=== PATIENT | female | born 1965 | race Caucasian/White ===

== ENCOUNTER 2017-04-02 17:29 | Inpatient (IN) ==
--- NOTE | 2017-04-02 17:38 | Emergency Department Note ---
Disposition Clinical Impression: Acute appendicitis Qualifiers: Acute appendicitis type: unspecified acute appendicitis type Qualified Code(s) : K35.80 - Unspecified acute appendicitis Disposition: Admitted As Inpatient Condition: Good Forms: Work/School Release, ED Satisfaction Letter Time of Disposition: 17:44 Abdominal Pain HPI - General Chief Complaint: ED Abdominal Pain Stated Complaint: + Appy Time Seen by Provider: 04/02/17 17:32 Source: patient, EMS Mode of arrival: EMS Limitations: no limitations Nursing Notes Reviewed: Yes Vital Signs Reviewed: Yes - History of Present Illness HPI Narrative: 51-year-old who comes in complaining of abdominal pain that she's had for 2 weeks intermittently and worse over the last 2 days localized to the right lower quadrant she was seen at the [facility] white count was normal at 9.8 hemoglobin was 15. 1 hematocrit was 46.8 with surgery 336,000 also some was negative CT of the abdomen was obtained that shows a dilated blind-ending tubular structure in the right lower quadrant with surrounding inflammatory changes which is consistent with acute appendicitis. Pt Subjective Complaint: abdominal pain Onset (ago): week(s) Consistency: intermittent Location: RLQ Pain Severity: moderate Quality: aching Radiation: none Migration to: no migration Improves with: nothing Worsens with: nothing Associated symptoms: Reports: nausea - Related Data Allergies Allergy/AdvReac Type Severity Reaction Status Date / Time No Known Allergies Allergy Verified 04/02/17 17:37 Constitutional: Denies: fever, chills, weakness, weight change Eyes: Denies: eye pain, eye discharge, vision change ENT ED: Denies: ear pain, throat pain, dental pain, hearing loss, epistaxis, congestion, dysphagia Cardiovascular: Denies: chest pain, palpitations, dyspnea on exertion, edema, syncope Respiratory: Denies: cough, dyspnea, wheezes, hemoptysis, stridor Gastrointestinal: Reports: abdominal pain, nausea. Denies: vomiting, diarrhea, constipation, hematemesis, melena, hematochezia Genitourinary: Denies: dysuria, frequency, hematuria, discharge Musculoskeletal: Denies: back pain, neck pain, arthralgia, myalgia Integumentary: Denies: rash, abrasion, lesions Neurological: Denies: headache, weakness, numbness, paresthesias, confusion, abnormal gait, vertigo Psychiatric: Denies: anxiety, depression, suicidal thoughts, homicidal thoughts , auditory hallucinations, visual hallucinations Endocrine: Denies: fatigue Hematological/Lymphatic: Denies: easy bleeding, easy bruising Allergic/Immunologic: Denies: facial swelling, urticaria Physical Exam - General Limitations: no limitations - Head Head exam: atraumatic, normocephalic, normal inspection - Eye Eye exam: Present: normal appearance, PERRL, EOMI - ENT ENT exam: normal exam, normal oropharynx, mucous membranes moist - Neck Neck exam: Present: normal inspection, full ROM, trachea midline - Chest Chest inspection: Present: normal inspection, symmetric chest wall rise - Respiratory Respiratory exam: Present: normal lung sounds bilaterally - Cardiovascular Cardiovascular exam: Present: regular rate, normal rhythm, normal heart sounds - Abdominal Exam Abdominal exam: Present: soft, tenderness, guarding. Absent: distention, rebound, rigidity Abdominal tenderness: Present: RLQ - Extremities Exam Extremities exam: Present: normal inspection, full ROM. Absent: tenderness, pedal edema - Expanded Lower Extremity Exam Neurovascular/Tendon exam: Absent: motor deficit, sensory deficit, tendon deficit Gait: not tested/not observed - Back Exam Back exam: Present: normal inspection, full ROM. Absent: tenderness - Neurological Exam Neurological exam: Present: alert, oriented X3 - Psychiatric Psychiatric exam: Present: normal affect, normal mood - Skin Skin exam: Present: warm, dry, intact, normal color Course - Reevaluation(s) Reevaluation #1: 51-year-old with abdominal pain right lower quadrant. Patient was evaluated at the [facility] white count was normal urine was negative CT scan consistent with acute appendicitis surgery will evaluate the patient. Time: 17:42 - Consultations Consultation #1: Discussed with , who will see the patient. Time: 17:42
[2017-04-02] MEDS ORDERED: Piperacillin/Tazobactam 3.375 GM in D5% in Water (Mini-Bag+) 100 ML IVPB ONE (17:43)
[2017-04-02] MEDS ORDERED: *HR* HYDROmorphone (PF) 1 MG/ML SYRINGE IVP ONE (18:00)
[2017-04-02] MEDS ORDERED: Ondansetron 4 MG/2 ML VIAL IVP ONE ×2 (18:00→19:29)
[2017-04-02 18:42] LABS: INR 1.1
[2017-04-02 18:44] LABS: Activated Partial Thrombo Time 30.3 Seconds (26.0-36.0)
[2017-04-02 18:50] LABS: BUN/Creatinine Ratio 9 (6-26); Blood Urea Nitrogen 6 mg/dL (7-20); Calcium 9.1 mg/dL (8.6-10.8); Carbon Dioxide 22 mEq/L (19-29); Chloride 107 mEq/L (98-109); Glucose 96 mg/dL (70-99); Osmolality,Calculated 287 (280-300); Sodium 140 mEq/L (136-145); eGFR For African Americans > 60 (> 60); eGFR For Non-African Americans > 60 (> 60)
[2017-04-02] MEDS ORDERED: *HR* FentaNYL (PF) 100 MCG/2 ML VIAL ONE (19:05)
[2017-04-02] MEDS ORDERED: *HR* Midazolam HCl 2 MG/2 ML VIAL ONE (19:06)
[2017-04-02] MEDS ORDERED: *HR* Propofol 200 MG/20 ML VIAL IVP ONE ×2 (19:06→20:34)
--- NOTE | 2017-04-02 19:07 | General Surg History&Physical ---
Date of Encounter: 04/02/17 Time of Encounter: 19:05 Assessment and Plan (1) Acute appendicitis Current Visit: Yes Status: Acute The assessment and plan as outlined above was discussed with the patient and/or family members who expressed understanding and agreement. All questions were answered. ct report and exam reviewed with patient and her family. Patient with acute appendicitis. nanosyn in ED wbc 9.8 inr 1.1 no tested needed d/t partial hysterectomy will plan laparoscopic appendectomy possible open, risks and benefits discussed with patient and she wishes to proceed Qualifiers: Acute appendicitis type: with localized peritonitis Qualified Code(s): K35.3 - Acute appendicitis with localized peritonitis (2) Tobacco abuse Current Visit: Yes Status: Acute The assessment and plan as outlined above was discussed with the patient and/or family members who expressed understanding and agreement. All questions were answered. aerosol before surgery IS, aggressive pulmonary toilet History of Present Illness Chief complaint: abdominal pain HPI: Ms. Kay is a 51 year old female with two weeks of intermittent right sided abdominal pain which she describes as initially a dull pain. Last two days her pain is right sided and sharp without radiation. She denies nausea or emesis. She has no diarrhea or dysuria. She has no fevers, chills or night sweats that are new. She is up visiting her mother from [facility]. Past Med Surg Social Fam HX - Past Medical History Source: patient Medical history: no medical history, other (obesity) Psychiatric history: no psych history - Past Surgical History Surgical History: other (partial hysterectomy, tubal ligation) - Social History Smoking Status: Current every day smoker Smokeless Tobacco Status: No Alcohol use: occasionally Drug use: none Current living situation: Home - Independent - Family History Grandmother History Unknown: Yes Medications and Allergies No Known Home Drugs 04/02/17 [History] Allergies No Known Allergies Allergy (Verified 04/02/17 17:37) Review of Systems All systems PM: reviewed and no additional remarkable complaints except as stated All systems PM: A 10-system review of systems was performed and is negative for pertinent findings except as documented above in the HPI. General Surgery Exam Initial Vital Signs Temp Pulse Resp BP Pulse Ox 98.4 F 80 18 137/78 96 04/02/17 17:30 04/02/17 17:30 04/02/17 17:30 04/02/17 17:30 04/02/17 17:30 - General physical appearance well developed, well nourished, no distress, obese - Eyes PERRL, normal ocular movement - ENT normal mucosa, atraumatic, normocephalic - Neck trachea midline - Respiratory normal expansion, clear to auscultation - Cardiovascular Cardiovascular exam: Present: RRR, no murmurs/rubs/gallops - Abdomen Abdomen general surgery: Present: bowel sounds present, soft, tender (right abdominal/flank pain). Absent: distended, guarding, rebound, rigid - Integumentary Integumentary general surgery: Present: warm and dry, no abnormal pigmentation. Absent: diaphoresis - Neurologic Present: CN 2-12 grossly intact - Musculoskeletal Present: normal gait, normal posture - Psychiatric Psychiatric general surgery: Present: A&Ox3, speech is normal Results - Labs 04/02/17 18:05 Abnormal lab results BUN 6 mg/dL (7-20) L 04/02/17 18:05 All other labs normal. - Imaging CT scan - abdomen: report reviewed CT scan - pelvis: report reviewed
[2017-04-02] MEDS ORDERED: *HR* Succinylcholine 200 MG/10 ML VIAL IVP ONE (19:09)
[2017-04-02] MEDS ORDERED: *HR* Rocuronium Bromide 50 MG/5 ML VIAL ONE (19:09)
[2017-04-02] MEDS ORDERED: Dexamethasone 4 MG/ML VIAL ONE (19:09)
[2017-04-02] MEDS ORDERED: Lidocaine -MPF 2% 2 ML VIAL ONE (19:09)
[2017-04-02] MEDS ORDERED: Ondansetron 4 MG/2 ML VIAL ONE (19:09)
[2017-04-02] MEDS ORDERED: Albuterol 2.5 MG/3 ML NEBULIZER IH ONE (19:16)
--- NOTE | 2017-04-02 19:19 | Anesthesia Evaluation PreOp ---
Date of Encounter: 04/02/17 Time of Encounter: 19:19 - Past History Planned Operation: Lap. Appy Cardiac History: Denies any Significant Hx Pulmonary History: Smoker SALES LEDGER ADMINISTRATOR History: Denies Any Significant HX Other Medical History: Denies Any Significant HX Anesthesia History: Past Anesthesia (AMAURY, tubal) : No (AMAURY) Alcohol Use: occasionally Drug use: none Medications and Allergies No Known Home Drugs 04/02/17 [History] Allergies No Known Allergies Allergy (Verified 04/02/17 17:37) - Meds/Allergy Pre-op Review Medications Reviewed: Yes Allergies Reviewed: Yes Beta Blockers on Current Med List: No Anesthesia Results - Labs 04/02/17 18:05 Hg.- 15.1 Anesthesia Exam O2 Sat Height 1.68 m Weight 99.79 kg O2 Sat by Pulse Oximetry 95 O2 Sat by Pulse Oximetry 96 Vital Signs Temp Pulse Resp BP Pulse Ox 98.4 F 80 18 137/78 96 04/02/17 17:30 04/02/17 17:30 04/02/17 17:30 04/02/17 17:30 04/02/17 17:30 Vital Signs/O2 Sat, Most Current Temp Pulse Resp BP Pulse Ox 98.4 F 72 18 134/87 95 04/02/17 17:30 04/02/17 18:35 04/02/17 18:35 04/02/17 18:35 04/02/17 18:35 Height: 5'6'' Weight: 220# NPO (# of Hours): > 8 hrs Pain Scale: 0 Pain Scale Used: Numeric (1 - 10) - HEENT Pupil (Motor): Pupils equal, EOMI Mallampati: II Teeth: Normal Oral Opening: Greater than 3 - SALES LEDGER ADMINISTRATOR LOC: Oriented SALES LEDGER ADMINISTRATOR Motor: Normal RUE, Normal LUE, Normal RLE, Normal LLE, Normal Face SALES LEDGER ADMINISTRATOR Sensory: Normal: RUE, LUE, RLE, LLE, Face - Cardiac Rhythm: Regular Murmur: None JVD: No Carotid Bruit: No - Pulmonary Breath Sounds: bilateral Clear Respiratory Effort: Symmetrical Anesthesia Assess/Plan ASA Score: 2 Modified Meme Scale for Level of Consciousness: Cooperative, oriented, and tranquil Anesthetic Plan: General Autologous Blood: Yes Monitoring Plan: Standard Monitors Recovery Plan: PACU
[2017-04-02] MEDS ORDERED: Albuterol Neb 1.25 MG/3 ML VIAL IH ONE (19:22)
[2017-04-02] MEDS ORDERED: *HR* Promethazine 25 MG/ML VIAL IVP PRN ×2 (19:29→21:55)
[2017-04-02] MEDS ORDERED: *HR* HYDROmorphone (PF) 1 MG/ML SYRINGE IVP PRN (19:29)
[2017-04-02] MEDS ORDERED: *HR* Labetalol 20 MG/4 ML SYRINGE IVP PRN (19:29)
--- NOTE | 2017-04-02 20:54 | Operative Note ---
Date of procedure: 04/02/17 Pre-op diagnosis: acute appendicitis Post-op diagnosis: same Procedure: Laparoscopic appendectomy Complications: none immediate Anesthesia: GETA, local Local Anesthetics: 0.5% Sensorcaine HCL SubQ (cc) (30) Surgeon: Maria Esther Bentley Estimated blood loss (cc): 5 Specimen: appendix Condition: stable Disposition: PACU Procedure in Detail: The patient was brought into the operating suite and placed supine on the operating table. Sign-in was performed and everyone was in agreement. Anesthesia was induced and patient was endotracheally intubated by anesthesia without incident. An OG tube was placed by anesthesia. The abdomen was prepped and draped in the usual sterile fashion. A timeout was performed and again everyone was in agreement. A supraumbilical incision was made through the skin and the subcutaneous tissue with an 11 blade. Towel clamps were placed on either side of the umbilicus for retraction. S-retractors were used to dissect down to the anterior abdominal wall linea alba fascia. A Veress needle was placed into this incision and a water drop test confirmed placement and the abdomen was insufflated. We then entered the abdomen with the 5 mm 0 degree laparoscope on a 5 mm X-stephanie trocar. The area under entry was visualized and there was no bleeding and no apparent bowel injury. We placed a suprapubic 5 mm port under direct visualization after first incising the skin with an 11 blade. The laparoscope was placed through this and we exchanged the supraumbilical port for a 12 mm port under direct visualization. We then placed another 5 mm port in the left lower quadrant position under direct visualization after first incising the skin with an 11 blade. The patient was placed in slight Trendelenburg left side down position. The cecum was located as was the appendix. The appendix was grasped and retracted anteriorly and caudally with a laparoscopic [place], it was densely adherent to the right colon with inflammation. A [place] was used to dissect between the mesoappendix and the appendix at the base of the cecum. The appendix was transected at the base of the cecum with the flex ex ETS stapler utilizing a white load. The mesoappendix was transected with a laparoscopic flex-ex ETS stapler using a white load x2. The appendix was placed in a laparoscopic Endo Catch bag and removed via the supraumbilical incision site. Both staple lines were evaluated and there was no bleeding and both staple lines were intact. The area was irrigated with sterile saline which was then suctioned free from the abdomen. The insufflation was suctioned free from the abdomen and all trochars removed. We closed the abdominal wall at the supraumbilical incision site with an 0 Vicryl [id number] stitch. A 30 cc of 0.5% Marcaine was injected subcutaneously at the 3 port sites. The skin at the two 5 mm port sites was closed with 4-0 Monocryl interrupted subcuticular stitches. The skin at the supraumbilical incision site was closed with a 4-0 Monocryl running subcuticular stitch. Steri-Strips were applied to the wounds. The patient was extubated in the OR and tolerated the procedure well and was taken to PACU after all lap and instrument counts were correct at the end of the case.
--- NOTE | 2017-04-02 21:20 | Anesthesia Evaluation Post Op ---
Date of Encounter: 04/02/17 Time of Encounter: 21:19 - Vital Signs Vital Signs: Vital Signs/O2 Sat, Most Current Temp Pulse Resp BP Pulse Ox 97.8 F 85 20 140/85 96 04/02/17 20:58 04/02/17 21:18 04/02/17 21:18 04/02/17 21:18 04/02/17 21:18 - Lungs Lungs: Clear Ascult./Percussion - Airway Airway: Non-obstructed - Cardiovascular Regular Rate - Mental Status Mental Status: Alert & Oriented, Answers Appropriately - Pain Pain Scale: 0 Pain Scale used: Numeric (1 - 10) - Nausea Vomiting Nausea Vomiting: Not Present - Hydration Hydration: Tolerates oral liquids, Has not voided - Discharge PostOp Status: Transfer Patient to floor
[2017-04-02] MEDS ORDERED: Naloxone 0.4 MG/ML INJ IVP PRN (21:55)
[2017-04-02] MEDS ORDERED: Ondansetron 4 MG/2 ML VIAL IVP PRN (21:55)
[2017-04-02] MEDS ORDERED: Ipratropium/Albuterol Neb 3 ML IH PRN (21:55)
[2017-04-02] MEDS ORDERED: 0.9 % Sodium Chloride 1,000 ML IVC SCH (21:55)
[2017-04-02] MEDS ORDERED: *HR* Morphine 2 MG/ML SYRINGE IVP PRN (21:55)
[2017-04-03] MEDS: *HR* OxyCODONE/APAP 5/325 TABLET PO PRN ×3 (00:15→11:26)
[2017-04-03] MEDS ORDERED: Piperacillin/Tazobactam 3.375 GM in D5% in Water (Mini-Bag+) 100 ML IVPB SCH (02:30)
[2017-04-03 06:44] VITALS: BP 104/61
[2017-04-03 07:25] LABS: Basophils % 0.1 %; Hematocrit 42.8 % (35.3-44.9); Hemoglobin 14.4 g/dL (11.5-15.4); Immature Granulocytes % 0.4 % (0-4); Lymphocytes # 0.9 K/mcL (0.6-4.6); Lymphocytes % 9.7 %; Mean Corpuscular HGB Conc 33.6 g/dL (31.6-35.5); Mean Corpuscular Hemoglobin 28.4 pg (28.0-33.3); Mean Corpuscular Volume 84.4 fL (83.0-100.0); Mean Platelet Volume 10.3 fL (9.4-12.4); Monocytes # 0.2 K/mcL (0.0-1.3); Monocytes % 2.2 %; Platelet Count 310 K/mcL (140-400); Red Blood Count 5.07 M/mcL (3.82-4.97); Red Cell Distribution Width 13.3 % (11.5-14.5); Segmented Neutrophils % 87.6 %
[2017-04-03 07:52] LABS: BUN/Creatinine Ratio 9 (6-26); Blood Urea Nitrogen 6 mg/dL (7-20); Carbon Dioxide 21 mEq/L (19-29); Chloride 106 mEq/L (98-109); Glucose 138 mg/dL (70-99); Osmolality,Calculated 280 (280-300); Potassium 4.2 mEq/L (3.5-4.5); Sodium 135 mEq/L (136-145); eGFR For African Americans > 60 (> 60); eGFR For Non-African Americans > 60 (> 60)
--- NOTE | 2017-04-03 10:16 | Discharge Summary ---
Date of Encounter: 04/03/17 Time of Encounter: 10:12 - Discharge Diagnosis (1) Acute appendicitis Priority: Primary Status: Resolved Qualifiers: Acute appendicitis type: unspecified acute appendicitis type Qualified Code (s): K35.80 - Unspecified acute appendicitis (2) Tobacco abuse Priority: Secondary Status: Chronic - Discharge Medications Prescriptions: OxyCODONE/APAP 5/325 [Percocet 5/325 MG] 1 each PO Q4HR PRN #30 tablet PRN Reason: Pain Ibuprofen [Motrin] 800 mg PO Q8HR #50 tablet Docusate [Colace] 100 mg PO BID #30 capsule Home Medications: Docusate [Colace] 100 mg PO BID #30 capsule 04/03/17 [Rx] Ibuprofen [Motrin] 800 mg PO Q8HR #50 tablet 04/03/17 [Rx] OxyCODONE/APAP 5/325 [Percocet 5/325 MG] 1 each PO Q4HR PRN #30 tablet 04/03/17 [Rx] Allergies/Adverse Reactions: Allergies No Known Allergies Allergy (Verified 04/02/17 17:37) General Surgery Exam Initial Vital Signs Temp Pulse Resp BP Pulse Ox 98.4 F 80 18 137/78 96 04/02/17 17:30 04/02/17 17:30 04/02/17 17:30 04/02/17 17:30 04/02/17 17:30 - General physical appearance well developed, well nourished, no distress - Eyes normal ocular movement - ENT normal mucosa, atraumatic, normocephalic - Neck trachea midline - Respiratory normal respiratory effort, clear to auscultation - Cardiovascular Cardiovascular exam: Present: RRR - Abdomen Abdomen general surgery: Present: bowel sounds present, soft, tender (Expected postoperative tenderness) - Incision Incision: Present: clean and dry, intact - Integumentary Integumentary general surgery: Present: warm and dry - Neurologic Present: CN 2-12 grossly intact - Musculoskeletal Present: normal gait, normal posture - Psychiatric Psychiatric general surgery: Present: appropriate, oriented to person, oriented to place, oriented to time, speech is normal, memory intact Date of admission: 04/02/17 19:45 Primary care physician: PCP NO [facility] Anticipated date of discharge: 04/03/17 - Patient Status Disposition: Home, Self-Care Condition: Good Functional capacity at discharge: independent ambulation Overall status at discharge: patient is progressing back to baseline - Discharge Instructions Follow Up With: NO,PCP [Primary Care Provider] - (Follow-up with PCP in [place] in 1-2 weeks) Additional Instructions: #1 may shower, no tub bath for 2 weeks #2 wash incisions with soap and water and pat dry daily #3 no lifting, pushing, pulling more than 15 pounds for the next 2 weeks #4 no driving until off narcotics for 24 hours and able to safely react in the car #5 may climb stairs - Diet and Activity Activity: increase activity as tolerated Diet: advance to your usual diet - Hospital Course Hospital course: Ms. Kay is a 51 year old female who presented to the emergency department with complaints of abdominal pain. She was started on IV antibiotics and taken to the operating room for laparoscopic appendectomy with Dr. Mahmood. On postoperative day #1, she is tolerating liquids without nausea or vomiting. Her pain is well-controlled. Preoperative pain has for the most part part resolved. Vital signs are stable and she is afebrile. She is voiding and ambulating without difficulty. We will begin discharge planning and she will follow-up with her primary physician in [place] as she does not with an [place]. - Time Spent with Patient Total time spent providing and/or coordinating discharge services: Less than 30 minutes Labs on day of discharge: Labs from last 24 hours 04/03/17 04/03/17 06:41 06:41 WBC 9.1 RBC 5.07 H Hgb 14.4 Hct 42.8 MCV 84.4 MCH 28.4 MCHC 33.6 RDW 13.3 Plt Count 310 MPV 10.3 Immature Gran % 0.4 Seg Neutrophils % 87.6 Lymphocytes % 9.7 Monocytes % 2.2 Eosinophils % 0.0 Basophils % 0.1 Neutrophils # 8.0 Lymphocytes # 0.9 Monocytes # 0.2 Eosinophils # 0.0 Basophils # 0.0 Sodium 135 L Potassium 4.2 Chloride 106 Carbon Dioxide 21 BUN 6 L Creatinine 0.69 Est GFR ( Amer) > 60 Est GFR (Non-Af Amer) > 60 BUN/Creatinine Ratio 9 Glucose 138 H Calculated Osmolality 280 Calcium 9.0 - Attending Attestation I examined this patient and my medical decision-making was reviewed with the FIELD SERVICES MANAGER/PA/Advanced Practice Nurse/Resident Physician. I agree with the documented findings, disposition and treatment plan as described except to the extent set forth below.
--- NOTE | 2017-04-03 14:26 | Electrocardiograph Report ---
[place] [id number] Test Date: 2017-04-02 Pat Name: Linda Kay Department: 105 Room: 3A35 Gender: F Assistant Administrator: : [id number] Requested By: Wil Grimes Order Number: [id number] Reading MD: Stanley oNlasco MD Measurements Intervals [place] Rate: 66 P: 43 CO: 117 QRS: 25 QRSD: 82 T: 18 QT: 401 QTc: 414 Interpretive Statements SINUS RHYTHM WITH SHORT CO INTERVAL Electronically Signed On 04-03-2017 14:24:29 EDT by Stanley Nolasco MD
== END 2017-04-03 11:28 | disposition home or self-care (01) | DRG 343 ==
LOC: EMEROO 17:29 → 3ANU 17:29
PROVIDERS: ADMIT Surgery; ATTEND Surgery

== ENCOUNTER 2017-04-17 10:13 | Inpatient (IN) ==
[2017-04-17] MEDS ORDERED: 0.9 % Sodium Chloride 1,000 ML IVC ONE (10:48)
[2017-04-17] MEDS ORDERED: Ondansetron 4 MG/2 ML VIAL IVP ONE ×2 (10:48→12:15)
--- NOTE | 2017-04-17 10:55 | Emergency Department Note ---
Disposition Clinical Impression: Ileus Intractable nausea and vomiting Qualifiers: Vomiting type: unspecified Qualified Code(s): R11.2 - Nausea with vomiting, unspecified Disposition: Admitted As Inpatient Condition: Fair [facility]: [facility]Primary Care Provider[facility] - Forms: Work/School Release, ED Satisfaction Letter General Adult HPI - General Chief complaint: ED Abdominal Pain Stated complaint: N/V; drainage from incision site Time Seen by Provider: 04/17/17 10:28 Source: patient, family Limitations: no limitations Nursing Notes Reviewed: Yes Vital Signs Reviewed: Yes - History of Present Illness HPI Narrative: 51-year-old female who was diagnosed with acute appendicitis on April 02. She went for a appendectomy and was diagnosed with a carcinoid tumor of the appendix. Due to this she went for a right-sided colectomy on April 10. She was discharged from the hospital yesterday evening. She has been having progressively worsening nausea and vomiting since her discharge. She is also having drainage from the incision site. She has not had a bowel movement since she left the hospital yesterday. She denies having a fever. The drainage from the incision site is serosanguineous. She is having some mild to moderate abdominal pain. She is vomiting when she tries to eat or drink anything. Past surgical history includes partial hysterectomy, tubal ligation. She does smoke. She did not pickle pumper her prescription for Zofran. She has taken only one Percocet. Radiation: non-radiation Pain Severity: moderate Pain Scale: 7 Consistency: constant Improves with: nothing Worsens with: nothing Associated symptoms: Reports: denies other symptoms Treatments Prior to Arrival: none - Related Data Home Medications Medication Instructions Recorded Confirmed No Known Home Drugs 04/17/17 04/17/17 Allergies Allergy/AdvReac Type Severity Reaction Status Date / Time No Known Allergies Allergy Verified 04/17/17 13:41 All systems ED: reviewed and negative except as stated. Constitutional: Denies: fever ENT ED: Denies: throat pain Cardiovascular: Denies: chest pain Respiratory: Denies: cough Gastrointestinal: Reports: abdominal pain, nausea, vomiting. Denies: diarrhea, hematemesis, hematochezia Genitourinary: Denies: dysuria Musculoskeletal: Denies: back pain Integumentary: Denies: rash Neurological: Denies: headache Past Medical History - Past Medical History Medical history: Reports: other Surgical history: Reports: hysterectomy (partial), other (tubal ligation) Psychiatric history: Reports: no psych history - Social History Smoking Status: Former smoker Smokeless Tobacco Status: No Alcohol use: Reports: occasionally Drug use: Reports: none Physical Exam - General Limitations: no limitations General appearance: alert - Head Head exam: atraumatic - Eye Eye exam: Present: normal appearance, PERRL - ENT ENT exam: normal exam, normal oropharynx - Neck Neck exam: Present: normal inspection - Chest Chest inspection: Present: normal inspection - Respiratory Respiratory exam: Present: normal lung sounds bilaterally. Absent: respiratory distress - Cardiovascular Cardiovascular exam: Present: regular rate, normal rhythm - Abdominal Exam Abdominal exam: Present: soft, tenderness (Right-sided abdominal tenderness without rebound. Abdomen is otherwise soft. Serosanguineous drainage from midline incision scar with shirin present. No surrounding erythema.) - Extremities Exam Extremities exam: Present: normal inspection - Back Exam Back exam: Present: normal inspection - Neurological Exam Neurological exam: Present: alert, oriented X3 - Skin Skin exam: Present: warm, dry Course Course Narrative: As she had a recent bowel surgery in his have been nausea and vomiting without bowel movements she likely has a ileus or obstruction. However she is having significant drainage from the midline incision so I will do a CT scan of the abdomen and pelvis with oral and IV contrast to rule out anastomotic leak or breakdown. We will control her symptoms will she is here is that is her main concern is nausea and vomiting. She has not taken her home Zofran because she did not pickle pumper her prescription. Vital Signs Temperature 97.8 F 04/17/17 10:15 Pulse Rate 112 04/17/17 10:15 Respiratory Rate 16 04/17/17 10:15 Blood Pressure 119/86 04/17/17 10:15 O2 Sat by Pulse Oximetry 94 04/17/17 10:15 Temperature 97.8 F 04/17/17 10:15 Pulse Rate 108 04/17/17 11:51 Respiratory Rate 18 04/17/17 11:51 Blood Pressure 147/109 04/17/17 11:51 O2 Sat by Pulse Oximetry 96 04/17/17 11:51 Oxygen Delivery Oxygen Delivery Room Air Medical Decision Making - Medical Records Medical records reviewed: Yes I reviewed the patient's medical records. - Lab Data Lab results reviewed: Yes I reviewed the patient's lab results. Result diagrams: 04/17/17 10:58 04/17/17 10:58 Lab Results 04/17/17 04/17/17 Range/Units 10:58 10:58 WBC 7.2 (4.3-11.1) K/mcL RBC 5.31 H (3.82-4.97) M/mcL Hgb 14.5 (11.5-15.4) g/dL Hct 44.4 (35.3-44.9) % MCV 83.6 (83.0-100.0) fL MCH 27.3 L (28.0-33.3) pg MCHC 32.7 (31.6-35.5) g/dL RDW 13.5 (11.5-14.5) % Plt Count 432 H (140-400) K/mcL MPV 9.6 (9.4-12.4) fL Immature Gran % 0.3 (0-4) % Seg Neutrophils % 73.6 % Lymphocytes % 8.8 % Monocytes % 16.4 % Eosinophils % 0.6 % Basophils % 0.3 % Neutrophils # 5.3 (1.6-8.9) K/mcL Lymphocytes # 0.6 (0.6-4.6) K/mcL Monocytes # 1.2 (0.0-1.3) K/mcL Eosinophils # 0.0 (0.0-0.6) K/mcL Basophils # 0.0 (0.0-0.2) K/mcL Sodium 137 (136-145) mEq/L Potassium 3.6 (3.5-4.5) mEq/L Chloride 99 (98-109) mEq/L Carbon Dioxide 26 (19-29) mEq/L BUN 10 (7-20) mg/dL Creatinine 0.62 (0.57-1.11) mg/dL Est GFR ( Amer) > 60 (> 60) Est GFR (Non-Af Amer) > 60 (> 60) BUN/Creatinine Ratio 16 (6-26) Glucose 129 H (70-99) mg/dL Calculated Osmolality 285 (280-300) Calcium 9.4 (8.6-10.8) mg/dL Total Bilirubin 0.8 (0.2-1.2) mg/dL Direct Bilirubin 0.5 (0.0-0.5) mg/dL Indirect Bilirubin 0.3 (0.0-1.2) mg/dL AST 20 (5-34) Units/L ALT 26 (0-55) Units/L Alkaline Phosphatase 82 (38-126) Units/L Serum Total Protein 6.8 (6.0-8.3) g/dL Albumin 2.8 L (3.5-5.0) g/dL Globulin 4.0 H (2.4-3.5) g/dL Albumin/Globulin Ratio 0.7 L (1.1-2.2) Lipase < 10 (8-78) Units/L - Radiology Data Radiology results reviewed: Yes I reviewed the patient's radiology results.
[2017-04-17 11:06] LABS: Basophils % 0.3 %; Eosinophils % 0.6 %; Hematocrit 44.4 % (35.3-44.9); Hemoglobin 14.5 g/dL (11.5-15.4); Immature Granulocytes % 0.3 % (0-4); Lymphocytes # 0.6 K/mcL (0.6-4.6); Lymphocytes % 8.8 %; Mean Corpuscular HGB Conc 32.7 g/dL (31.6-35.5); Mean Corpuscular Hemoglobin 27.3 pg (28.0-33.3); Mean Corpuscular Volume 83.6 fL (83.0-100.0); Mean Platelet Volume 9.6 fL (9.4-12.4); Monocytes # 1.2 K/mcL (0.0-1.3); Monocytes % 16.4 %; Neutrophils # 5.3 K/mcL (1.6-8.9); Platelet Count 432 K/mcL (140-400); Red Blood Count 5.31 M/mcL (3.82-4.97); Red Cell Distribution Width 13.5 % (11.5-14.5); Segmented Neutrophils % 73.6 %
[2017-04-17 11:20] LABS: Alanine Aminotransferase 26 Units/L (0-55); Albumin 2.8 g/dL (3.5-5.0); Albumin/Globulin Ratio 0.7 (1.1-2.2); Alkaline Phosphatase 82 Units/L (38-126); Aspartate Amino Transferase 20 Units/L (5-34); BUN/Creatinine Ratio 16 (6-26); Bilirubin,Direct 0.5 mg/dL (0.0-0.5); Bilirubin,Indirect 0.3 mg/dL (0.0-1.2); Bilirubin,Total 0.8 mg/dL (0.2-1.2); Blood Urea Nitrogen 10 mg/dL (7-20); Calcium 9.4 mg/dL (8.6-10.8); Carbon Dioxide 26 mEq/L (19-29); Chloride 99 mEq/L (98-109); Glucose 129 mg/dL (70-99); Osmolality,Calculated 285 (280-300); Potassium 3.6 mEq/L (3.5-4.5); Sodium 137 mEq/L (136-145); Total Protein 6.8 g/dL (6.0-8.3); eGFR For African Americans > 60 (> 60); eGFR For Non-African Americans > 60 (> 60)
[2017-04-17 11:23] LABS: Lipase < 10 Units/L (8-78)
--- NOTE | 2017-04-17 11:59 | Emergency Department Note ---
Disposition Clinical Impression: Intractable nausea and vomiting, Ileus Disposition: Admitted As Inpatient Condition: Fair General Adult HPI - General Chief complaint: ED Abdominal Pain Stated complaint: N/V; drainage from incision site Time Seen by Provider: 04/17/17 10:28 Source: patient, family Limitations: no limitations - History of Present Illness Pain Scale: 7 Improves with: nothing Worsens with: nothing Associated symptoms: Reports: denies other symptoms Treatments Prior to Arrival: none - Related Data Home Medications Medication Instructions Recorded Confirmed No Known Home Drugs 04/17/17 04/17/17 Allergies Allergy/AdvReac Type Severity Reaction Status Date / Time No Known Allergies Allergy Verified 04/17/17 13:41 Constitutional: Denies: fever ENT ED: Denies: throat pain Cardiovascular: Denies: chest pain Respiratory: Denies: cough Gastrointestinal: Reports: abdominal pain, nausea, vomiting. Denies: diarrhea, hematemesis, hematochezia Genitourinary: Denies: dysuria Musculoskeletal: Denies: back pain Integumentary: Denies: rash Neurological: Denies: headache Past Medical History - Past Medical History Medical history: Reports: other Surgical history: Reports: hysterectomy (partial), other (tubal ligation) Psychiatric history: Reports: no psych history - Social History Smoking Status: Former smoker Smokeless Tobacco Status: No Alcohol use: Reports: occasionally Drug use: Reports: none Physical Exam - General Limitations: no limitations General appearance: alert Course Vital Signs Temperature 97.8 F 04/17/17 10:15 Pulse Rate 112 04/17/17 10:15 Respiratory Rate 16 04/17/17 10:15 Blood Pressure 119/86 04/17/17 10:15 O2 Sat by Pulse Oximetry 94 04/17/17 10:15 Temperature 98.3 F 04/17/17 13:51 Pulse Rate 102 04/17/17 13:51 Respiratory Rate 18 04/17/17 13:51 Blood Pressure 116/72 04/17/17 13:51 O2 Sat by Pulse Oximetry 92 04/17/17 13:51 Oxygen Delivery Oxygen Delivery Room Air Medical Decision Making - Lab Data Result diagrams: 04/17/17 10:58 04/17/17 10:58 Lab Results 04/17/17 04/17/17 Range/Units 10:58 10:58 WBC 7.2 (4.3-11.1) K/mcL RBC 5.31 H (3.82-4.97) M/mcL Hgb 14.5 (11.5-15.4) g/dL Hct 44.4 (35.3-44.9) % MCV 83.6 (83.0-100.0) fL MCH 27.3 L (28.0-33.3) pg MCHC 32.7 (31.6-35.5) g/dL RDW 13.5 (11.5-14.5) % Plt Count 432 H (140-400) K/mcL MPV 9.6 (9.4-12.4) fL Immature Gran % 0.3 (0-4) % Seg Neutrophils % 73.6 % Lymphocytes % 8.8 % Monocytes % 16.4 % Eosinophils % 0.6 % Basophils % 0.3 % Neutrophils # 5.3 (1.6-8.9) K/mcL Lymphocytes # 0.6 (0.6-4.6) K/mcL Monocytes # 1.2 (0.0-1.3) K/mcL Eosinophils # 0.0 (0.0-0.6) K/mcL Basophils # 0.0 (0.0-0.2) K/mcL Sodium 137 (136-145) mEq/L Potassium 3.6 (3.5-4.5) mEq/L Chloride 99 (98-109) mEq/L Carbon Dioxide 26 (19-29) mEq/L BUN 10 (7-20) mg/dL Creatinine 0.62 (0.57-1.11) mg/dL Est GFR ( Amer) > 60 (> 60) Est GFR (Non-Af Amer) > 60 (> 60) BUN/Creatinine Ratio 16 (6-26) Glucose 129 H (70-99) mg/dL Calculated Osmolality 285 (280-300) Calcium 9.4 (8.6-10.8) mg/dL Total Bilirubin 0.8 (0.2-1.2) mg/dL Direct Bilirubin 0.5 (0.0-0.5) mg/dL Indirect Bilirubin 0.3 (0.0-1.2) mg/dL AST 20 (5-34) Units/L ALT 26 (0-55) Units/L Alkaline Phosphatase 82 (38-126) Units/L Serum Total Protein 6.8 (6.0-8.3) g/dL Albumin 2.8 L (3.5-5.0) g/dL Globulin 4.0 H (2.4-3.5) g/dL Albumin/Globulin Ratio 0.7 L (1.1-2.2) Lipase < 10 (8-78) Units/L Attestation Statement - Attestation Attestation: I examined this patient and my medical decision-making was reviewed with the PRINCIPAL CLERK TYPIST/PA/Advanced Practice Nurse/Resident Physician. I agree with the documented findings, disposition and treatment plan as described except to the extent set forth below. In summary this is a female patient who presents with concern for vomiting after recent colectomy from carcinoid tumor. Plan to obtain CT scan of the abdomen and pelvis with both by mouth and intravenous contrast. Patient is not peritoneal. There is concern for possible obstruction versus other postoperative changes. Nurse practitioner from surgical team available at bedside. ok to proceed with admission prior to results of advanced imaging. Patient will be admitted for supportive care pending evaluation of advanced imaging.
--- NOTE | 2017-04-17 12:53 | General Surg History&Physical ---
<Valentine Lovett Pelon - Last Filed: 04/17/17 12:55> Date of Encounter: 04/17/17 Time of Encounter: 12:30 Assessment and Plan (1) Nausea and vomiting Current Visit: Yes Status: Acute The assessment and plan as outlined above was discussed with the patient and/or family members who expressed understanding and agreement. All questions were answered. NPO IV fluids- 75ml/hour CT scan of abdomen/pelvis to further evaluate Supportive care Antiemetics prn for nausea/vomiting May require NG tube if continued nausea/vomiting Qualifiers: Vomiting type: vomiting of fecal matter Qualified Code(s): R11.13 - Vomiting of fecal matter (2) S/P right colectomy Current Visit: Yes Status: Acute The assessment and plan as outlined above was discussed with the patient and/or family members who expressed understanding and agreement. All questions were answered. 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 All questions were answered. Cultures obtained- does not appear infected at this time Daily dressing changes/packing- see orders (4) Tobacco abuse Current Visit: No Status: Chronic The assessment and plan as outlined above was discussed with the patient and/or family members who expressed understanding and agreement. All questions were answered. Smoking cessation education IS every 1 hour while awake Duonebs prn (5) DVT prophylaxis Current Visit: No Status: Acute The assessment and plan as outlined above was discussed with the patient and/or family members who expressed understanding and agreement. All questions were answered. Heparin 5,000 units SQ twice daily for DVT prophylaxis Ambulate hallways TID with assistance History of Present Illness Chief complaint: Incisional drainage with nausea/vomiting HPI: Ms. Kay is a 51 year old female who is status post a laparoscopic appendectomy on 04/05/[address] Bentley for acute appendicitis. 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 She was admitted to the hospital and did undergo an open right colectomy on 04/10/[address] Bentley. She was discharged on 04/16/2017. She states that she did well yesterday and did vomit after upon arrival home. She states that she felt that this was due to the car ride home. She reports that she has continued to have increasing bloating, nausea and vomiting. She reports that her emesis looks and smells like fecal material. She states that at 0400 this morning after vomiting , she starting draining large amount of clear, yellow fluid from the bottom of her midline incision. She states that it has soaked through 4X4 gauze and towels. She has no appetite. She denies fevers/chills. Denies difficulty with urination. Denies chest pains. She states that it is difficult to take a deep breath because of her bloating. She was advised to report to the ED for further evaluation. Past Med Surg Social Fam HX - Past Medical History Source: patient, old records reviewed Medical history: other (obesity) Psychiatric history: no psych history - Past Surgical History Surgical History: appendectomy (04/02/17), colectomy (right 04/10/17), hysterectomy (partial), other (tubal ligation) - Social History Smoking Status: Current every day smoker Smokeless Tobacco Status: No Alcohol use: occasionally Drug use: none Current living situation: Home - Independent Activity Level: Independent ambulation - Family History Mother Living Status: Still Living Hx Family Cardiac Disorders: No Hx Family Respiratory Disorders: No Hx Family Cancer: No Hx Family GI Disorders: Yes (partial colon removal- benign polyp) Hx Family Endocrine Disorder: Yes (DM) Hx Family Neuromuscular Disorders: No Hx Family Neurologic Disorders: No Hx Family HEENT Disorders: No Hx Family Autoimmune Disorders: No Medications and Allergies No Known Home Drugs 04/17/17 [History] Allergies No Known Allergies Allergy (Verified 04/17/17 13:41) Review of Systems All systems PM: reviewed and no additional remarkable complaints except as stated (in the HPI) All systems PM: A 10-system review of systems was performed and is negative for pertinent findings except as documented above in the HPI. General Surgery Exam Initial Vital Signs Temp Pulse Resp BP Pulse Ox 97.8 F 112 16 119/86 94 04/17/17 10:15 04/17/17 10:15 04/17/17 10:15 04/17/17 10:15 04/17/17 10:15 - General physical appearance well developed, well nourished, no distress, moderate pain - Eyes normal ocular movement - ENT normal mucosa, atraumatic, normocephalic - Neck trachea midline - Respiratory normal respiratory effort, clear to auscultation, other (diminished bibasilar bases) - Cardiovascular Cardiovascular exam: Present: tachycardia - Abdomen Abdomen general surgery: Present: soft, distended, tender, wound (bottom of midline incision with serous drainage) Abdominal Tenderness: Present: diffusely - Incision Incision: Present: intact, serous (moderate amount of serous drainage noted) - Integumentary Integumentary general surgery: Present: warm and dry - Neurologic Present: CN 2-12 grossly intact - Psychiatric Psychiatric general surgery: Present: appropriate, oriented to person, oriented to place, oriented to time, speech is normal, memory intact Results - Labs 04/17/17 10:58 04/17/17 10:58 Abnormal lab results RBC 5.31 M/mcL (3.82-4.97) H 04/17/17 10:58 MCH 27.3 pg (28.0-33.3) L 04/17/17 10:58 Plt Count 432 K/mcL (140-400) H 04/17/17 10:58 Glucose 129 mg/dL (70-99) H 04/17/17 10:58 Albumin 2.8 g/dL (3.5-5.0) L 04/17/17 10:58 Globulin 4.0 g/dL (2.4-3.5) H 04/17/17 10:58 Albumin/Globulin Ratio 0.7 (1.1-2.2) L 04/17/17 10:58 All other labs normal. - Attending Attestation I examined this patient and my medical decision-making was reviewed with the [employer] PIPE SUPERVISOR/PA/Advanced Practice Nurse/Resident Physician. I agree with the documented findings, disposition and treatment plan as described except to the extent set forth below. <Maria Esther Bentley - Last Filed: 04/18/17 16:51> Date of Encounter: 04/17/17 Time of Encounter: 17:10 Assessment and Plan (1) Nausea and vomiting Current Visit: Yes Status: Acute The assessment and plan as outlined above was discussed with the patient and/or family members who expressed understanding and agreement. All questions were answered. will place ngt discussed ct and labs results with patient ivf hydration prn antiemetics and pain control serial abdominal exams Qualifiers: Vomiting type: bilious vomiting Qualified Code(s): R11.14 - Bilious vomiting (2) S/P right colectomy Current Visit: Yes Status: Acute The assessment and plan as outlined above was discussed with the patient and/or family members who expressed understanding and agreement. All questions were answered. (3) Seroma Current Visit: Yes Status: Acute The assessment and plan as outlined above was discussed with the patient and/or family members who expressed understanding and agreement. All questions were answered. pack daily with 1/4" plain packing, cover with 4x4 gauze and tape, change daily (4) SBO (small bowel obstruction) Current Visit: Yes Status: Acute The assessment and plan as outlined above was discussed with the patient and/or family members who expressed understanding and agreement. All questions were answered. patient with good bowel sounds, labs normal, but nausea and emesis and dilation of small bowel that is fluid filled and fluid past anastomosis. will treat conservatively at this time. History of Present Illness HPI: Ms. Kay is a 51 year old female Review of Systems All systems PM: A 10-system review of systems was performed and is negative for pertinent findings except as documented above in the HPI. General Surgery Exam Initial Vital Signs Temp Pulse Resp BP Pulse Ox 97.8 F 112 16 119/86 94 04/17/17 10:15 04/17/17 10:15 04/17/17 10:15 04/17/17 10:15 04/17/17 10:15 - General physical appearance well developed, well nourished, no distress, no pain - Eyes PERRL, normal ocular movement - ENT normal mucosa, normocephalic - Neck trachea midline - Respiratory normal expansion, clear to auscultation - Cardiovascular Cardiovascular exam: Present: RRR - Abdomen Abdomen general surgery: Present: bowel sounds present, soft, distended. Absent : tender, guarding, rebound - Incision Incision: Present: intact, serous - Integumentary Integumentary general surgery: Present: warm and dry - Neurologic Present: CN 2-12 grossly intact - Musculoskeletal Present: normal gait - Psychiatric Psychiatric general surgery: Present: A&Ox3 Results - Labs 04/18/17 05:02 04/18/17 05:02 Abnormal lab results MCH 27.9 pg (28.0-33.3) L 04/18/17 05:02 Plt Count 441 K/mcL (140-400) H 04/18/17 05:02 Potassium 3.2 mEq/L (3.5-4.5) L 04/18/17 05:02 Glucose 111 mg/dL (70-99) H 04/18/17 05:02 POC Glucose 93 (58-89) H 04/18/17 11:37 Albumin 2.8 g/dL (3.5-5.0) L 04/17/17 10:58 Globulin 4.0 g/dL (2.4-3.5) H 04/17/17 10:58 Albumin/Globulin Ratio 0.7 (1.1-2.2) L 04/17/17 10:58 Urine Clarity Cloudy (Clear) A 04/18/17 05:30 Ur Specific [place] > 1.030 (1.010-1.025) H 04/18/17 05:30 Urine Protein 100 mg/dL (Neg-Trace) H 04/18/17 05:30 Urine Ketones >=160 mg/dL (Negative) H 04/18/17 05:30 Urine Bilirubin Small (Negative) H 04/18/17 05:30 Urine Microscopic RBC 5-15 per hpf (0-3) H 04/18/17 05:30 Ur Squamous Epith Cells Many per lpf (None-Few) H 04/18/17 05:30 Urine Bacteria Moderate per hpf (None-Few) H 04/18/17 05:30 Diabetes panel 04/18/17 Range/Units 05:02 Sodium 139 (136-145) mEq/L Potassium 3.2 L (3.5-4.5) mEq/L Chloride 101 (98-109) mEq/L Carbon Dioxide 24 (19-29) mEq/L BUN 13 (7-20) mg/dL Creatinine 0.60 (0.57-1.11) mg/dL Glucose 111 H (70-99) mg/dL Calcium 8.9 (8.6-10.8) mg/dL Calcium panel 04/18/17 Range/Units 05:02 Calcium 8.9 (8.6-10.8) mg/dL Pituitary panel 04/18/17 Range/Units 05:02 Sodium 139 (136-145) mEq/L Potassium 3.2 L (3.5-4.5) mEq/L Chloride 101 (98-109) mEq/L Carbon Dioxide 24 (19-29) mEq/L BUN 13 (7-20) mg/dL Creatinine 0.60 (0.57-1.11) mg/dL Glucose 111 H (70-99) mg/dL Calcium 8.9 (8.6-10.8) mg/dL Adrenal panel 04/18/17 Range/Units 05:02 Sodium 139 (136-145) mEq/L Potassium 3.2 L (3.5-4.5) mEq/L Chloride 101 (98-109) mEq/L Carbon Dioxide 24 (19-29) mEq/L BUN 13 (7-20) mg/dL Creatinine 0.60 (0.57-1.11) mg/dL Glucose 111 H (70-99) mg/dL Calcium 8.9 (8.6-10.8) mg/dL All other labs normal. - Imaging CT scan - abdomen: report reviewed, image reviewed CT scan - pelvis: report reviewed, image reviewed - Attending Attestation I examined this patient and my medical decision-making was reviewed with the [employer] PIPE SUPERVISOR/PA/Advanced Practice Nurse/Resident Physician. I agree with the documented findings, disposition and treatment plan as described except to the extent set forth below.
[2017-04-17] MEDS ORDERED: Naloxone 0.4 MG/ML INJ IVP PRN (13:42)
[2017-04-17] MEDS ORDERED: *HR* HYDROmorphone (PF) 1 MG/ML SYRINGE IVP PRN (13:42)
[2017-04-17] MEDS ORDERED: Ipratropium/Albuterol Neb 3 ML IH PRN (13:42)
[2017-04-17] MEDS: Ketorolac 15 MG/ML VIAL IVP SCH ×2 (14:40→17:20)
[2017-04-17] MEDS: Ondansetron 4 MG/2 ML VIAL IVP PRN (15:19)
[2017-04-17] MEDS ORDERED: Lidocaine Jelly 2% 30 ML JEL..ML. MM ONE (16:00)
[2017-04-17] MEDS: 0.9 % Sodium Chloride 1,000 ML IVC SCH (17:20)
[2017-04-17] MEDS: *HR* Heparin 5,000 UNIT/ML VIAL SQ SCH (17:20)
[2017-04-18] MEDS: Metoclopramide 10 MG/2 ML VIAL IVP SCH ×6 (00:25→22:56)
[2017-04-18] MEDS: Ondansetron 4 MG/2 ML VIAL IVP PRN ×3 (00:26→10:20)
[2017-04-18] MEDS: Ketorolac 15 MG/ML VIAL IVP SCH ×5 (00:26→22:56)
[2017-04-18 05:33] LABS: Basophils % 0.3 %; Eosinophils # 0.1 K/mcL (0.0-0.6); Eosinophils % 2.2 %; Hematocrit 38.7 % (35.3-44.9); Immature Granulocytes % 0.3 % (0-4); Lymphocytes % 16.6 %; Mean Corpuscular HGB Conc 32.8 g/dL (31.6-35.5); Mean Corpuscular Hemoglobin 27.9 pg (28.0-33.3); Mean Corpuscular Volume 84.9 fL (83.0-100.0); Mean Platelet Volume 10.1 fL (9.4-12.4); Monocytes % 17.6 %; Neutrophils # 3.7 K/mcL (1.6-8.9); Platelet Count 441 K/mcL (140-400); Red Blood Count 4.56 M/mcL (3.82-4.97); Red Cell Distribution Width 13.6 % (11.5-14.5)
[2017-04-18 05:41] LABS: BUN/Creatinine Ratio 22 (6-26); Blood Urea Nitrogen 13 mg/dL (7-20); Calcium 8.9 mg/dL (8.6-10.8); Carbon Dioxide 24 mEq/L (19-29); Chloride 101 mEq/L (98-109); Glucose 111 mg/dL (70-99); Hemoglobin 12.7 g/dL (11.5-15.4); Osmolality,Calculated 289 (280-300); Potassium 3.2 mEq/L (3.5-4.5); Sodium 139 mEq/L (136-145); eGFR For African Americans > 60 (> 60); eGFR For Non-African Americans > 60 (> 60)
[2017-04-18 06:00] LABS: Bilirubin,Urine Small (Negative); Blood,Urine Negative (Negative); Clarity,Urine Cloudy (Clear); Color,Urine Dark Yellow (Yellow); Glucose,Urine (UA) Normal (Normal); Ketones,Urine >=160 mg/dL (Negative); Leukocyte Esterase,Urine Negative (Negative); Nitrite,Urine Negative (Negative); Protein,Urine 100 mg/dL (Neg-Trace); Specific Gravity,Urine > 1.030 (1.010-1.025); Urobilinogen,Urine Normal (Normal)
[2017-04-18 06:02] LABS: Bacteria,Urine Moderate per hpf (None-Few); Hyaline Casts,Urine Few per lpf (None-Few); Squamous Epithelial Cell,Urine Many per lpf (None-Few); WBC,Urine 0-3 per hpf (0-3)
[2017-04-18] MEDS: *HR* Heparin 5,000 UNIT/ML VIAL SQ SCH ×2 (06:24→17:54)
[2017-04-18] MEDS: 0.9 % Sodium Chloride 1,000 ML IVC SCH ×2 (06:24→20:18)
[2017-04-18] MEDS: Pantoprazole 40 MG VIAL IVP SCH (09:01)
[2017-04-18] MEDS ORDERED: D10% in Water 500 ML IVC PRN (10:16)
--- NOTE | 2017-04-18 11:24 | General Surgery Progress Note ---
Date of Encounter: 04/18/17 Time of Encounter: 11:22 - Assessment and Plan (1) Nausea and vomiting Current Visit: Yes Status: Acute Concern for ileus versus small bowel obstruction: Continue NG tube to low intermittent wall suction. Noted output over the last 24 hours of approximately 2900 ML's. Output has changed in color from yellow, fecal contaminant, to gastric output Denies flatus but reports bowel movement x3 today that is loose Await culture results for UA. Suspect contaminate. Supportive Care Continue anti-emetics PRN for nausea or vomiting continue ice chips as tolerated Offered PICC and TPN nutrition; pt declines at this time. She is agreeable to observation and if s/s are not resolved on 04/19/2017, she is agreeable to PICC placement and TPN at that time. 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 Noted output over the last 24 hours of approximately 2900 ML's. Output has changed in color from yellow, fecal contaminant, to gastric output denies flatus but reports bowel movement x3 today that is loose Supportive Care Continue anti-emetics PRN for nausea or vomiting discomfort controlled on current regimen Offered PICC and TPN nutrition; pt declines at this time (3) Seroma Current Visit: Yes Status: Acute Cultures obtained, Gram stain positive for gram-positive cocci continue daily dressing changes and packing: see orders (4) Hypokalemia Current Visit: No Status: Acute 40 MEQ potassium chloride with lidocaine now. Recheck AM labs Subjective Patient reports: no new complaints, feels better, pain is less, voiding w/o difficulty, no flatus, bowel movement (States 3 BM's this a.m. that are loose), afebrile, other (Tolerating ice chips) Narrative: Linda denies feelings of fevers, chest pain, shortness of breath, abdominal pain, or vomiting. She endorses feelings of nausea but attributes this to the feeling of the NG tube in her throat. She states she has had 3 bowel movements this a.m. but denies passing flatus. She reports that her abdominal incision continues to drain but denies any discomfort or change in drainage. Objective Vital Signs - Last 8 Hours Temp Pulse Resp BP Pulse Ox 04/18/17 07:19 97.6 F 85 16 121/71 93 04/18/17 04:15 98.5 F 93 15 128/76 94 Intake and Output 04/17/17 04/18/17 04/18/17 23:59 07:59 15:59 Intake Total 0 / 0 1060 / 1060 0 / 0 Output Total 1375 / 1375 2300 / 2300 Balance -1375 / -1375 -1240 / -1240 -1 -1 Intake: IV Fluids 1000 / 1000 0.9 % Sodium Chloride 1, 1000 / 1000 000 ML @ 75 mls/hr IVC . [id number] [facility] Rx#: [id number] Oral 0 / 0 60 / 60 0 / 0 Output: Urine 100 / 100 650 / 650 Urine/Stool Mix Gastric Drainage 1275 / 1275 1650 / 1650 Right Nare 600 / 600 Other: Meal NPO npo npo Percent of Meal Consumed 0% Stool Size Moderate Stool Consistency liquid Stool Color Brown # Voids 1 Weight 100.1 kg Blood Glucose* 108 99 99 Patient Weight 04/18/17 23:59 Weight 100.1 kg - General physical appearance no distress, no pain - Eyes normal ocular movement - ENT atraumatic, normocephalic - Neck Neck exam: trachea midline - Respiratory normal expansion, normal respiratory effort, clear to auscultation - Cardiovascular Cardiovascular exam: Present: RRR. Absent: JVD - Abdomen Abdomen: Present: bowel sounds present, soft, non tender - Incision Incision: Present: draining, serous, approximated - Integumentary no rash - Neurologic CN 2-12 grossly intact - Psychiatric oriented to time, oriented to person, oriented to place - Labs 04/18/17 05:02 04/18/17 05:02 Diabetes panel 04/18/17 Range/Units 05:02 Sodium 139 (136-145) mEq/L Potassium 3.2 L (3.5-4.5) mEq/L Chloride 101 (98-109) mEq/L Carbon Dioxide 24 (19-29) mEq/L BUN 13 (7-20) mg/dL Creatinine 0.60 (0.57-1.11) mg/dL Glucose 111 H (70-99) mg/dL Calcium 8.9 (8.6-10.8) mg/dL Calcium panel 04/18/17 Range/Units 05:02 Calcium 8.9 (8.6-10.8) mg/dL Pituitary panel 04/18/17 Range/Units 05:02 Sodium 139 (136-145) mEq/L Potassium 3.2 L (3.5-4.5) mEq/L Chloride 101 (98-109) mEq/L Carbon Dioxide 24 (19-29) mEq/L BUN 13 (7-20) mg/dL Creatinine 0.60 (0.57-1.11) mg/dL Glucose 111 H (70-99) mg/dL Calcium 8.9 (8.6-10.8) mg/dL Adrenal panel 04/18/17 Range/Units 05:02 Sodium 139 (136-145) mEq/L Potassium 3.2 L (3.5-4.5) mEq/L Chloride 101 (98-109) mEq/L Carbon Dioxide 24 (19-29) mEq/L BUN 13 (7-20) mg/dL Creatinine 0.60 (0.57-1.11) mg/dL Glucose 111 H (70-99) mg/dL Calcium 8.9 (8.6-10.8) mg/dL - Imaging CT scan - abdomen: report reviewed Additional Studies: Abnormal Labs, Last 24 hours 04/18/17 04/18/17 04/18/17 05:37 05:30 05:02 MCH Plt Count Potassium 3.2 L Glucose 111 H POC Glucose 99 H Urine Clarity Cloudy A Ur Specific [place] > 1.030 H Urine Protein 100 H Urine Ketones >=160 H Urine Bilirubin Small H Urine Microscopic RBC 5-15 H Ur Squamous Epith Cells Many H Urine Bacteria Moderate H 04/18/17 04/17/17 04/17/17 05:02 23:44 16:58 MCH 27.9 L Plt Count 441 H Potassium Glucose POC Glucose 108 H 103 H Urine Clarity Ur Specific [place] Urine Protein Urine Ketones Urine Bilirubin Urine Microscopic RBC Ur Squamous Epith Cells Urine Bacteria Abdomen/Pelvis CT 04/17/17 12:10 IMPRESSION: Appearance of the bowel consistent with moderate to severe ileus; however, since the appearance of the bowel has worsened and not improved from the prior study, a bowel obstruction should be considered present. No normal sized small bowel identified. Development of a small to moderate amount of ascites. No evident abscess. Mild bibasilar atelectasis with tiny bilateral pleural effusions. Cholelithiasis. No other significant abnormality. D/ / Chintan Hutchinson MD / Chintan Hutchinson MD Interpreting Provider: Chintan Hutchinson MD X-Ray 04/17/17 16:23 IMPRESSION: Enteric tube in the stomach as above. Distention of the small bowel which may represent partial small-bowel obstruction. D/ / 04/17/2017 16:42:40 Wero Martell MD / [email or web address] Interpreting Provider: Wero Martell MD Consult Discharge Plan - Plan [facility]errals: [facility] [Primary Care Provider[facility] -
[2017-04-18] MEDS ORDERED: Potassium Chloride 40 MEQ, Lidocaine 1% 2 ML in D5% in Water 500 ML IVPB ONE (13:03)
[2017-04-18] MEDS ORDERED: Clinimix E 5%-15% SOLUTION 2,000 ML with MVI, adult with vitamin K 10 ML IVC SCH (17:00)
[2017-04-18] MEDS: *HR* LORazepam 2 MG/ML VIAL IVP PRN (17:14)
[2017-04-19] MEDS: *HR* LORazepam 2 MG/ML VIAL IVP PRN ×3 (04:12→20:52)
[2017-04-19 05:19] LABS: BUN/Creatinine Ratio 25 (6-26); Blood Urea Nitrogen 15 mg/dL (7-20); Calcium 9.3 mg/dL (8.6-10.8); Carbon Dioxide 30 mEq/L (19-29); Chloride 103 mEq/L (98-109); Glucose 104 mg/dL (70-99); Magnesium 1.8 mg/dL (1.6-2.6); Osmolality,Calculated 295 (280-300); Phosphorous 3.7 mg/dL (2.3-4.7); Potassium 3.2 mEq/L (3.5-4.5); Sodium 142 mEq/L (136-145); Triglycerides 168 mg/dL (< 150); eGFR For African Americans > 60 (> 60); eGFR For Non-African Americans > 60 (> 60)
[2017-04-19] MEDS: *HR* Heparin 5,000 UNIT/ML VIAL SQ SCH ×2 (05:48→18:00)
[2017-04-19] MEDS: Ketorolac 15 MG/ML VIAL IVP SCH ×2 (05:48→12:38)
[2017-04-19] MEDS: Metoclopramide 10 MG/2 ML VIAL IVP SCH ×3 (05:49→20:06)
[2017-04-19] MEDS: 0.9 % Sodium Chloride 1,000 ML IVC SCH (09:27)
[2017-04-19] MEDS: Pantoprazole 40 MG VIAL IVP SCH (09:27)
--- NOTE | 2017-04-19 11:12 | General Surgery Progress Note ---
<Sherlyn Heard - Last Filed: 04/19/17 11:31> Date of Encounter: 04/19/17 Time of Encounter: 11:00 - Assessment and Plan (1) Nausea and vomiting Current Visit: Yes Status: Acute Concern for ileus versus small bowel obstruction: Continue NG tube to low intermittent wall suction. Noted output over the last 24 hours of greater than 4L dark brown contents Reports small amount of flatus and no BM Await culture results for UA. Suspect contaminate. Supportive Care Continue anti-emetics PRN for nausea or vomiting Continue Reglan Continue ice chips as tolerated PICC and TPN today Repeat KUB PRN Qualifiers: Vomiting type: bilious vomiting Qualified Code(s): R11.14 - Bilious vomiting (2) S/P right colectomy Current Visit: Yes Status: Acute Concern for ileus versus small bowel obstruction: Continue NG tube to low intermittent wall suction. Noted output over the last 24 hours of greater than 4L dark brown contents Reports small amount of flatus and no BM Await culture results for UA. Suspect contaminate. Supportive Care Continue anti-emetics PRN for nausea or vomiting Continue Reglan Continue ice chips as tolerated PICC and TPN today Repeat KUB in AM (3) Seroma Current Visit: Yes Status: Acute Cultures obtained, Gram stain positive for gram-positive cocci continue daily dressing changes and packing: see orders (4) Hypokalemia Current Visit: No Status: Acute 40 MEQ potassium chloride with lidocaine now; recheck potassium 1 hour after infusion. Recheck AM labs Subjective Patient reports: no new complaints, feels better, pain is less, voiding w/o difficulty, flatus, no bowel movement, afebrile Narrative: Linda states she is consuming aprox 3-4 small cups of ice chips daily ( equating to aprox 300-400 ml daily). She denies discomfort, n/v/d. She states she is having a small amount of flatus. She endorses return of appetite today. Objective Vital Signs - Last 8 Hours Temp Pulse Resp BP Pulse Ox 04/19/17 06:58 97.5 F L 82 18 108/74 94 04/19/17 03:57 97.6 F 83 17 120/71 94 Intake and Output 04/18/17 04/19/17 04/19/17 23:59 07:59 15:59 Intake Total 1060 / 1060 0 / 0 1000 / 1000 Output Total 1500 / 1500 750 / 750 750 / 750 Balance -440 / -440 -750 / -750 250 / 250 Intake: IV Fluids 1000 / 1000 1000 / 1000 0.9 % Sodium Chloride 1, 1000 / 1000 1000 / 1000 000 ML @ 75 mls/hr IVC . [id number] [facility] Rx#: [id number] Oral 60 / 60 0 / 0 Output: Urine 0 / 0 0 / 0 Gastric Drainage 1500 / 1500 750 / 750 750 / 750 Other: Meal ice chips npo Weight 96.7 kg Blood Glucose* 89 105 Patient Weight 04/19/17 23:59 Weight 96.7 kg - General physical appearance no distress, other (Sitting upright in chair at bedside.) - Eyes normal ocular movement - ENT normal mucosa, Other (NG tube noted secured) - Neck Neck exam: no masses, trachea midline - Respiratory normal expansion, normal respiratory effort, clear to auscultation - Cardiovascular Cardiovascular exam: Present: RRR - Abdomen Abdomen: Present: bowel sounds present, soft, non tender - Incision Incision: Present: clean and dry (No shadowing noted on the dressing. wound care per bedside RN) - Neurologic CN 2-12 grossly intact - Musculoskeletal normal gait, normal posture - Psychiatric oriented to time, oriented to person, oriented to place, speech is normal, memory intact - Labs 04/18/17 05:02 04/19/17 04:26 Diabetes panel 04/19/17 Range/Units 04:26 Sodium 142 (136-145) mEq/L Potassium 3.2 L (3.5-4.5) mEq/L Chloride 103 (98-109) mEq/L Carbon Dioxide 30 H (19-29) mEq/L BUN 15 (7-20) mg/dL Creatinine 0.60 (0.57-1.11) mg/dL Glucose 104 H (70-99) mg/dL Calcium 9.3 (8.6-10.8) mg/dL Triglycerides 168 H (< 150) mg/dL Calcium panel 04/19/17 Range/Units 04:26 Calcium 9.3 (8.6-10.8) mg/dL Phosphorus 3.7 (2.3-4.7) mg/dL Pituitary panel 04/19/17 Range/Units 04:26 Sodium 142 (136-145) mEq/L Potassium 3.2 L (3.5-4.5) mEq/L Chloride 103 (98-109) mEq/L Carbon Dioxide 30 H (19-29) mEq/L BUN 15 (7-20) mg/dL Creatinine 0.60 (0.57-1.11) mg/dL Glucose 104 H (70-99) mg/dL Calcium 9.3 (8.6-10.8) mg/dL Adrenal panel 04/19/17 Range/Units 04:26 Sodium 142 (136-145) mEq/L Potassium 3.2 L (3.5-4.5) mEq/L Chloride 103 (98-109) mEq/L Carbon Dioxide 30 H (19-29) mEq/L BUN 15 (7-20) mg/dL Creatinine 0.60 (0.57-1.11) mg/dL Glucose 104 H (70-99) mg/dL Calcium 9.3 (8.6-10.8) mg/dL - Imaging Additional Studies: KUB X-Ray 04/18/17 15:39 IMPRESSION: Enteric tube in the stomach as above. Partial small bowel obstruction versus ileus. Recommend follow-up radiographs. D/ : / 04/18/2017 16:37:03 [facility] MD [facility] Inter[facility]ting Provider: Daniel Duke MD Abdomen/Pelvis CT 04/17/17 12:10 IMPRESSION: Appearance of the bowel consistent with moderate to severe ileus; however, since the appearance of the bowel has worsened and not improved from the prior study, a bowel obstruction should be considered present. No normal sized small bowel identified. Development of a small to moderate amount of ascites. No evident abscess. Mild bibasilar atelectasis with tiny bilateral pleural effusions. Cholelithiasis. No other significant abnormality. D/ / Chintan Hutchinson MD / Chintan Hutchinson MD Interpreting Provider: Chintan Hutchinson MD Consult Discharge Plan - Plan [facility]errals: [facility] [[facility] Care Provider[facility] - <Maria Esther Bentley - Last Filed: 04/19/17 19:05> Date of Encounter: 04/19/17 Time of Encounter: 12:35 - Assessment and Plan (1) Nausea and vomiting Current Visit: Yes Status: Acute suspect contaminate for culture from midline wound, no erythema, no purulent drainage, drainage significantly slowed down, no foul smell, WBC normal, no plans for abx at this time Qualifiers: Vomiting type: bilious vomiting Qualified Code(s): R11.14 - Bilious vomiting (2) S/P right colectomy Current Visit: Yes Status: Acute continue concervative therapy, npo, ngt TPN prn pain control/antiemetics (3) Seroma Current Visit: Yes Status: Acute think result is skin contaminate, wbc normal, no erythema, only serous drainage , no purulence (4) SBO (small bowel obstruction) Current Visit: Yes Status: Acute + bs, some flatus, likely partial sbo due to filmy adhesions s/p surgery Subjective Narrative: no abdominal pain no further nausea feels better today passing some flatus but no bm Objective Vital Signs - Last 8 Hours Temp Pulse Resp BP Pulse Ox 04/19/17 15:48 98.3 F 86 16 120/71 96 04/19/17 11:25 97.8 F 82 16 116/78 96 04/19/17 11:14 97.5 F L 88 19 122/81 96 Intake and Output 04/19/17 04/19/17 04/19/17 07:59 15:59 23:59 Intake Total 0 / 0 1200 / 1200 120 / 120 Output Total 750 / 750 1550 / 1550 400 / 400 Balance -750 / -750 -350 / -350 -280 / -280 Intake: IV Fluids 1200 / 1200 0.9 % Sodium Chloride 1, 1200 / 1200 000 ML @ 75 mls/hr IVC . [id number] [facility] Rx#: [id number] Oral 0 / 0 120 / 120 Output: Urine 0 / 0 350 / 350 400 / 400 Gastric Drainage 750 / 750 1200 / 1200 Other: Meal npo Ice Weight 96.7 kg Blood Glucose* 105 100 104 Patient Weight 04/19/17 23:59 Weight 96.7 kg - General physical appearance well developed, well nourished, no distress, no pain - Eyes normal ocular movement - ENT normal mucosa, normocephalic - Neck Neck exam: trachea midline - Respiratory normal expansion, normal respiratory effort - Cardiovascular Cardiovascular exam: Present: RRR - Abdomen Abdomen: Present: bowel sounds present, soft, non tender - Incision Incision: Present: clean and dry, intact, serous, open - Integumentary no rash, no growths - Neurologic CN 2-12 grossly intact - Musculoskeletal normal posture - Psychiatric oriented to time, oriented to person, memory intact - Labs 04/18/17 05:02 04/19/17 17:40 BMP 04/19/17 04/19/17 Range/Units 17:40 04:26 Sodium 142 (136-145) mEq/L Potassium 3.4 L 3.2 L (3.5-4.5) mEq/L Chloride 103 (98-109) mEq/L Carbon Dioxide 30 H (19-29) mEq/L BUN 15 (7-20) mg/dL Creatinine 0.60 (0.57-1.11) mg/dL Glucose 104 H (70-99) mg/dL Calcium 9.3 (8.6-10.8) mg/dL Vital Signs Temp Pulse Resp BP Pulse Ox 04/19/17 15:48 98.3 F 86 16 120/71 96 04/19/17 11:25 97.8 F 82 16 116/78 96 04/19/17 11:14 97.5 F L 88 19 122/81 96 04/19/17 06:58 97.5 F L 82 18 108/74 94 04/19/17 03:57 97.6 F 83 17 120/71 94 04/18/17 23:30 98.9 F 91 15 116/70 94 Intake and Output 04/19/17 04/19/17 04/19/17 07:59 15:59 23:59 Intake Total 0 / 0 1200 / 1200 120 / 120 Output Total 750 / 750 1550 / 1550 400 / 400 Balance -750 / -750 -350 / -350 -280 / -280 Intake: IV Fluids 1200 / 1200 0.9 % Sodium Chloride 1, 1200 / 1200 000 ML @ 75 mls/hr IVC . [id number] [facility] Rx#: [id number] Oral 0 / 0 120 / 120 Output: Urine 0 / 0 350 / 350 400 / 400 Gastric Drainage 750 / 750 1200 / 1200 Other: Meal npo Ice Weight 96.7 kg Blood Glucose* 105 100 104 Patient Weight 04/19/17 23:59 Weight 96.7 kg - Attending Attestation I examined this patient and my medical decision-making was reviewed with the CLINICAL ACCOUNT SPECIALIST/PA/Advanced Practice Nurse/Resident Physician. I agree with the documented findings, disposition and treatment plan as described except to the extent set forth below.
[2017-04-19] MEDS ORDERED: Potassium Chloride 40 MEQ, Lidocaine 1% 2 ML in D5% in Water 500 ML IVPB ONE (11:21)
[2017-04-19] MEDS ORDERED: Water for inj. (sterile) 10 ML IV ONE (12:23)
[2017-04-19] MEDS: D5% in 0.45% NACL w KCl 20 MEQ/1,000 ML MLS IVC SCH (12:40)
[2017-04-19] MEDS ORDERED: Clinimix E 5%-15% SOLUTION 2,000 ML with MVI, adult with vitamin K 10 ML IVC SCH (17:00)
[2017-04-19] MEDS: Ondansetron 4 MG/2 ML VIAL IVP PRN (20:55)
[2017-04-20] MEDS: Metoclopramide 10 MG/2 ML VIAL IVP SCH ×5 (00:29→23:19)
[2017-04-20] MEDS: Ondansetron 4 MG/2 ML VIAL IVP PRN (04:03)
[2017-04-20 05:54] LABS: BUN/Creatinine Ratio 24 (6-26); Blood Urea Nitrogen 14 mg/dL (7-20); Calcium 8.8 mg/dL (8.6-10.8); Carbon Dioxide 30 mEq/L (19-29); Chloride 105 mEq/L (98-109); Glucose 129 mg/dL (70-99); Magnesium 1.9 mg/dL (1.6-2.6); Osmolality,Calculated 300 (280-300); Phosphorous 3.5 mg/dL (2.3-4.7); Potassium 3.3 mEq/L (3.5-4.5); Sodium 144 mEq/L (136-145); eGFR For African Americans > 60 (> 60); eGFR For Non-African Americans > 60 (> 60)
[2017-04-20] MEDS: *HR* Heparin 5,000 UNIT/ML VIAL SQ SCH ×2 (06:03→18:02)
[2017-04-20] MEDS: D5% in 0.45% NACL w KCl 20 MEQ/1,000 ML MLS IVC SCH ×2 (08:29→13:17)
[2017-04-20] MEDS ORDERED: Water for inj. (sterile) 10 ML IV ONE (08:36)
[2017-04-20] MEDS: *HR* LORazepam 2 MG/ML VIAL IVP PRN ×2 (08:39→18:11)
[2017-04-20] MEDS: Pantoprazole 40 MG VIAL IVP SCH (08:39)
--- NOTE | 2017-04-20 10:15 | General Surgery Progress Note ---
<Billy Cevallos - Last Filed: 04/20/17 12:44> Date of Encounter: 04/20/17 Time of Encounter: 10:13 - Assessment and Plan (1) Ileus Current Visit: Yes Status: Acute Ileus vs small bowel obstruction. Absend BS and likely Ileus. NGT output was 700cc brown fluid since midnight Continue TPN with PICC line NPO with ice chips or hard candy No BM, but large flatus noted. Will continue to monitor bowel function. Discussed and encouraged OOB as tolerating with staff. Nursing will clamp NGT. Continue wound care. Daily dressing changes to midline incision. Afebrile. Normal WBC. No drainage. Likely contaminate. KUB ordered today. (2) Seroma Current Visit: Yes Status: Acute Culture came back with enterococcus faecalis and will start on Vanco. (3) S/P right colectomy Current Visit: Yes Status: Acute Peformed on 04/10/[address] Bentley. See plan above. (4) Nausea and vomiting Current Visit: Yes Status: Acute Improving. Will continue PRN antiemetics. Qualifiers: Vomiting type: bilious vomiting Qualified Code(s): R11.14 - Bilious vomiting (5) Hypokalemia Current Visit: No Status: Acute Will replace and recheck tomorrow. Likely decreased from emesis. Subjective Narrative: Patient is lying comfortably in bed this morning. No concerns overnight per nursing. NGT output was 700 since yesterday. She is walking with staff and pain is well controlled. No BM but large flatus was reported. Afebrile. Objective Vital Signs - Last 8 Hours Temp Pulse Resp BP Pulse Ox 04/20/17 07:23 97.8 F 80 18 113/70 94 04/20/17 07:01 98.8 F 81 16 112/70 92 04/20/17 03:39 98.0 F 78 17 118/75 97 Intake and Output 04/19/17 04/20/17 04/20/17 23:59 07:59 15:59 Intake Total 120 / 120 1250 / 1250 1622.25 / 1622.25 Output Total 400 / 400 1200 / 1200 Balance -280 / -280 50 / 50 1622.25 / 1622.25 Intake: IV Fluids 1250 / 1250 1622.25 / 1622.25 Water for inj. (sterile) 0.25 / 0.25 10 ML As IV .STK-MED ONE Rx#:[id number] KCl 20mEq IN D5%-0.45 1000 / 1000 NACL 20 meq In 1,000 ml @ 75 mls/hr IVC .[id number] [facility] Rx#:[id number] Clinimix E 5%-15% 578 / 578 SOLUTION 2,000 ML @ 40 mls/hr IVC .Q24H [facility] with M.v.i. Adult 10 ml Rx#: [id number] Intralipid 20% 250 ML @ 250 / 250 21 mls/hr IVPB DAILY@1700 [facility] Rx#:[id number] Oral 120 / 120 0 / 0 Output: Urine 400 / 400 500 / 500 Gastric Drainage 700 / 700 Right Nare 700 / 700 Other: Meal Ice NPO Percent of Meal Consumed 0% Weight 96.6 kg Blood Glucose* 134 128 Patient Weight 04/20/17 23:59 Weight 96.6 kg - General physical appearance obese - ENT normal mucosa - Neck Neck exam: trachea midline - Respiratory normal respiratory effort, clear to auscultation - Cardiovascular Cardiovascular exam: Present: RRR - Abdomen Abdomen: Present: soft, non tender, wound (midline incision - c/d/i, changed today. No erythema or drainage. Packing placed in lower 1/3 of incision. ). Absent: bowel sounds present - Neurologic CN 2-12 grossly intact - Psychiatric oriented to time, oriented to person, oriented to place, speech is normal, memory intact - Labs 04/18/17 05:02 04/20/17 04:25 Diabetes panel 04/19/17 04/20/17 Range/Units 17:40 04:25 Sodium 144 (136-145) mEq/L Potassium 3.4 L 3.3 L (3.5-4.5) mEq/L Chloride 105 (98-109) mEq/L Carbon Dioxide 30 H (19-29) mEq/L BUN 14 (7-20) mg/dL Creatinine 0.58 (0.57-1.11) mg/dL Glucose 129 H (70-99) mg/dL Calcium 8.8 (8.6-10.8) mg/dL Calcium panel 04/20/17 Range/Units 04:25 Calcium 8.8 (8.6-10.8) mg/dL Phosphorus 3.5 (2.3-4.7) mg/dL Pituitary panel 04/19/17 04/20/17 Range/Units 17:40 04:25 Sodium 144 (136-145) mEq/L Potassium 3.4 L 3.3 L (3.5-4.5) mEq/L Chloride 105 (98-109) mEq/L Carbon Dioxide 30 H (19-29) mEq/L BUN 14 (7-20) mg/dL Creatinine 0.58 (0.57-1.11) mg/dL Glucose 129 H (70-99) mg/dL Calcium 8.8 (8.6-10.8) mg/dL Adrenal panel 04/19/17 04/20/17 Range/Units 17:40 04:25 Sodium 144 (136-145) mEq/L Potassium 3.4 L 3.3 L (3.5-4.5) mEq/L Chloride 105 (98-109) mEq/L Carbon Dioxide 30 H (19-29) mEq/L BUN 14 (7-20) mg/dL Creatinine 0.58 (0.57-1.11) mg/dL Glucose 129 H (70-99) mg/dL Calcium 8.8 (8.6-10.8) mg/dL Consult Discharge Plan - Plan [facility]errals: [facility] [Primary Care Provider] - <Maria Esther Bentley - Last Filed: 04/20/17 14:32> Date of Encounter: 04/20/17 - Assessment and Plan (1) Nausea and vomiting Current Visit: Yes Status: Acute Qualifiers: Vomiting type: bilious vomiting Qualified Code(s): R11.14 - Bilious vomiting (2) S/P right colectomy Current Visit: Yes Status: Acute (3) Seroma Current Visit: Yes Status: Acute continues to be nonerythematous, no purulence, drainage serous, will start vanco given culture results (4) SBO (small bowel obstruction) Current Visit: Yes Status: Acute is resolving, passing some flatus axr with nondistention small bowel loops will place ngt to liws, ok ice chips and popcicles (5) Hypokalemia Current Visit: No Status: Acute Subjective Patient reports: no new complaints, feels better, flatus, no bowel movement Objective Vital Signs - Last 8 Hours Temp Pulse Resp BP Pulse Ox 04/20/17 10:33 98.1 F 83 18 112/73 95 04/20/17 07:23 97.8 F 80 18 113/70 94 04/20/17 07:01 98.8 F 81 16 112/70 92 Intake and Output 04/19/17 04/20/17 04/20/17 23:59 07:59 15:59 Intake Total 120 / 120 1250 / 1250 1622.25 / 1622.25 Output Total 400 / 400 1200 / 1200 550 / 550 Balance -280 / -280 50 / 50 1072.25 / 1072.25 Intake: IV Fluids 1250 / 1250 1622.25 / 1622.25 Water for inj. (sterile) 0.25 / 0.25 10 ML As IV .STK-MED ONE Rx#:[id number] KCl 20mEq IN D5%-0.45 1000 / 1000 NACL 20 meq In 1,000 ml @ 75 mls/hr IVC .[id number] [facility] Rx#:[id number] Clinimix E 5%-15% 578 / 578 SOLUTION 2,000 ML @ 40 mls/hr IVC .Q24H [facility] with M.v.i. Adult 10 ml Rx#: [id number] Intralipid 20% 250 ML @ 250 / 250 21 mls/hr IVPB DAILY@1700 [facility] Rx#:[id number] Oral 120 / 120 0 / 0 Output: Urine 400 / 400 500 / 500 200 / 200 Gastric Drainage 700 / 700 350 / 350 Right Nare 700 / 700 Other: Meal Ice NPO Percent of Meal Consumed 0% Weight 96.6 kg Blood Glucose* 134 128 135 Patient Weight 04/20/17 23:59 Weight 96.6 kg - General physical appearance well nourished, no distress, no pain, obese - Eyes PERRL, normal ocular movement - ENT normal mucosa, normocephalic - Neck Neck exam: trachea midline - Respiratory normal expansion, clear to auscultation - Cardiovascular Cardiovascular exam: Present: RRR - Abdomen Abdomen: Present: bowel sounds present, soft, non tender - Incision Incision: Present: clean and dry, serous, open - Integumentary no rash, no growths - Neurologic CN 2-12 grossly intact - Musculoskeletal normal posture - Psychiatric oriented to time, oriented to person, oriented to place, memory intact - Labs 04/18/17 05:02 04/20/17 04:25 BMP 04/20/17 04/19/17 Range/Units 04:25 17:40 Sodium 144 (136-145) mEq/L Potassium 3.3 L 3.4 L (3.5-4.5) mEq/L Chloride 105 (98-109) mEq/L Carbon Dioxide 30 H (19-29) mEq/L BUN 14 (7-20) mg/dL Creatinine 0.58 (0.57-1.11) mg/dL Glucose 129 H (70-99) mg/dL Calcium 8.8 (8.6-10.8) mg/dL Vital Signs Temp Pulse Resp BP Pulse Ox 04/20/17 10:33 98.1 F 83 18 112/73 95 04/20/17 07:23 97.8 F 80 18 113/70 94 04/20/17 07:01 98.8 F 81 16 112/70 92 04/20/17 03:39 98.0 F 78 17 118/75 97 04/19/17 23:55 98.5 F 80 17 118/71 97 04/19/17 20:13 98.4 F 81 17 121/74 96 04/19/17 15:48 98.3 F 86 16 120/71 96 Intake and Output 04/19/17 04/20/17 04/20/17 23:59 07:59 15:59 Intake Total 120 / 120 1250 / 1250 1622.25 / 1622.25 Output Total 400 / 400 1200 / 1200 550 / 550 Balance -280 / -280 50 / 50 1072.25 / 1072.25 Intake: IV Fluids 1250 / 1250 1622.25 / 1622.25 Water for inj. (sterile) 0.25 / 0.25 10 ML As IV .STK-MED ONE Rx#:[id number] KCl 20mEq IN D5%-0.45 1000 / 1000 NACL 20 meq In 1,000 ml @ 75 mls/hr IVC .[id number] [facility] Rx#:[id number] Clinimix E 5%-15% 578 / 578 SOLUTION 2,000 ML @ 40 mls/hr IVC .Q24H [facility] with M.v.i. Adult 10 ml Rx#: [id number] Intralipid 20% 250 ML @ 250 / 250 21 mls/hr IVPB DAILY@1700 [facility] Rx#:[id number] Oral 120 / 120 0 / 0 Output: Urine 400 / 400 500 / 500 200 / 200 Gastric Drainage 700 / 700 350 / 350 Right Nare 700 / 700 Other: Meal Ice NPO Percent of Meal Consumed 0% Weight 96.6 kg Blood Glucose* 134 128 135 Patient Weight 04/20/17 23:59 Weight 96.6 kg - Imaging Abdominal x-ray: report reviewed, image reviewed - Attending Attestation I examined this patient and my medical decision-making was reviewed with the METAL SPRAYER/PA/Advanced Practice Nurse/Resident Physician. I agree with the documented findings, disposition and treatment plan as described except to the extent set forth below.
[2017-04-20] MEDS: Vancomycin 1,000 MG in D5% in Water 250 ML IVPB SCH ×2 (13:19→23:16)
[2017-04-20] MEDS ORDERED: Clinimix E 5%-15% SOLUTION 2,000 ML with MVI, adult with vitamin K 10 ML IVC SCH (17:00)
[2017-04-21] MEDS: D5% in 0.45% NACL w KCl 20 MEQ/1,000 ML MLS IVC SCH ×2 (01:16→16:26)
[2017-04-21 04:48] LABS: Basophils % 0.5 %; Eosinophils % 2.8 %; Hematocrit 40.5 % (35.3-44.9); Hemoglobin 12.4 g/dL (11.5-15.4); Immature Granulocytes % 0.5 % (0-4); Lymphocytes % 17.4 %; Mean Corpuscular HGB Conc 30.6 g/dL (31.6-35.5); Mean Corpuscular Hemoglobin 26.4 pg (28.0-33.3); Mean Corpuscular Volume 86.4 fL (83.0-100.0); Mean Platelet Volume 9.5 fL (9.4-12.4); Monocytes % 9.5 %; Platelet Count 399 K/mcL (140-400); Red Blood Count 4.69 M/mcL (3.82-4.97); Red Cell Distribution Width 13.2 % (11.5-14.5); Segmented Neutrophils % 69.3 %
[2017-04-21 04:49] LABS: Eosinophils # 0.2 K/mcL (0.0-0.6); Lymphocytes # 1.4 K/mcL (0.6-4.6); Monocytes # 0.8 K/mcL (0.0-1.3); Neutrophils # 5.7 K/mcL (1.6-8.9)
[2017-04-21 05:02] LABS: BUN/Creatinine Ratio 19 (6-26); Blood Urea Nitrogen 11 mg/dL (7-20); Calcium 8.6 mg/dL (8.6-10.8); Carbon Dioxide 27 mEq/L (19-29); Chloride 106 mEq/L (98-109); Glucose 139 mg/dL (70-99); Magnesium 1.8 mg/dL (1.6-2.6); Osmolality,Calculated 286 (280-300); Phosphorous 3.5 mg/dL (2.3-4.7); Potassium 3.6 mEq/L (3.5-4.5); Sodium 137 mEq/L (136-145); eGFR For African Americans > 60 (> 60); eGFR For Non-African Americans > 60 (> 60)
[2017-04-21] MEDS: *HR* Heparin 5,000 UNIT/ML VIAL SQ SCH ×2 (06:02→16:27)
[2017-04-21] MEDS: Metoclopramide 10 MG/2 ML VIAL IVP SCH ×3 (06:02→16:27)
[2017-04-21] MEDS ORDERED: Aminoglycoside Consult 1 EACH MC ONE (08:32)
[2017-04-21] MEDS: Pantoprazole 40 MG VIAL IVP SCH (09:00)
--- NOTE | 2017-04-21 09:39 | General Surgery Progress Note ---
<Billy Cevallos - Last Filed: 04/21/17 12:06> Date of Encounter: 04/21/17 Time of Encounter: 09:00 - Assessment and Plan (1) Ileus Current Visit: Yes Status: Acute Management for Ileus: KUB on 04/20/17 demonstrated resolution of air filled distended loops of bowel NGT with gravity Finish TPN with PICC line today Advanced diet to clear liquids Two BMs noted this morning Discussed and encouraged OOB as tolerating with staff. Nursing will clamp NGT. Continue wound care. Daily dressing changes to midline incision. Afebrile. Normal WBC. No drainage. Discharge planning - Likely once diet advanced and tolerated with continued clinical resolution of ileus with bowel function (2) Seroma Current Visit: Yes Status: Acute Culture came back with enterococcus faecalis and started on Vanco. (3) S/P right colectomy Current Visit: Yes Status: Acute Peformed on 04/10/[address] Bentley. See plan above. (4) Nausea and vomiting Current Visit: Yes Status: Acute Improved. Will continue PRN antiemetics. Qualifiers: Vomiting type: bilious vomiting Qualified Code(s): R11.14 - Bilious vomiting (5) Hypokalemia Current Visit: No Status: Acute BMP wnl today. Subjective Patient reports: no new complaints, pain is less, flatus, bowel movement (x2 this morning), afebrile Objective Vital Signs - Last 8 Hours Temp Pulse Resp BP Pulse Ox 04/21/17 06:39 98.4 F 74 16 142/82 97 Intake and Output 04/20/17 04/21/17 04/21/17 23:59 07:59 15:59 Intake Total 523 / 523 1500 / 1500 1784 / 1784 Output Total 200 / 200 700 / 700 Balance 323 / 323 800 / 800 1784 / 1784 Intake: IV Fluids 403 / 403 1500 / 1500 1784 / 1784 KCl 20mEq IN D5%-0.45 1000 / 1000 624 / 624 NACL 20 meq In 1,000 ml @ 75 mls/hr IVC .[id number] [facility] Rx#:[id number] Clinimix E 5%-15% 303 / 303 1160 / 1160 SOLUTION 2,000 ML @ 75 mls/hr IVC .Q24H [facility] with M.v.i. Adult 10 ml Rx#: [id number] Intralipid 20% 250 ML @ 250 / 250 21 mls/hr IVPB DAILY@1700 [facility] Rx#:[id number] Potassium Chloride 10 mEq 100 / 100 /100mL 10 meq In 100 ml @ 100 mls/hr IVPB Q1H [facility] Rx#:[id number] Vancocin 1,000 MG In 250 / 250 Dextrose 5% 250 ML @ 167 mls/hr IVPB Q12H [facility] Rx#: [id number] Oral 120 / 120 Output: Urine 200 / 200 500 / 500 Urine/Stool Mix 200 / 200 Gastric Drainage 0 / 0 Other: Meal NPO NPO at this time Percent of Meal Consumed 0% Stool Size Small Stool Consistency loose Stool Color Brown # Bowel Movements 1 Weight 97.1 kg Blood Glucose* 150 117 Patient Weight 04/21/17 23:59 Weight 97.1 kg - General physical appearance no distress, obese - Eyes normal ocular movement - ENT normal mucosa - Neck Neck exam: trachea midline - Respiratory normal respiratory effort, clear to auscultation - Cardiovascular Cardiovascular exam: Present: RRR - Abdomen Abdomen: Present: bowel sounds present, soft, non tender, wound (midline incision is c/d/i with dressing in place. [place] present without dehiscence. No erythema or drainage.). Absent: rebound - Neurologic CN 2-12 grossly intact - Psychiatric oriented to time, oriented to person, oriented to place, speech is normal, memory intact - Labs 04/21/17 04:40 04/21/17 04:40 Short CBC 04/21/17 Range/Units 04:40 WBC 8.2 (4.3-11.1) K/mcL Hgb 12.4 (11.5-15.4) g/dL Hct 40.5 (35.3-44.9) % Plt Count 399 (140-400) K/mcL Neutrophils # 5.7 (1.6-8.9) K/mcL BMP 04/21/17 Range/Units 04:40 Sodium 137 (136-145) mEq/L Potassium 3.6 (3.5-4.5) mEq/L Chloride 106 (98-109) mEq/L Carbon Dioxide 27 (19-29) mEq/L BUN 11 (7-20) mg/dL Creatinine 0.58 (0.57-1.11) mg/dL Glucose 139 H (70-99) mg/dL Calcium 8.6 (8.6-10.8) mg/dL Vital Signs Temp Pulse Resp BP Pulse Ox 04/21/17 06:39 98.4 F 74 16 142/82 97 04/20/17 23:25 98.7 F 84 15 129/77 95 04/20/17 20:09 98.2 F 89 18 132/94 95 04/20/17 10:33 98.1 F 83 18 112/73 95 Intake and Output 04/20/17 04/21/17 04/21/17 23:59 07:59 15:59 Intake Total 523 / 523 1500 / 1500 1784 / 1784 Output Total 200 / 200 700 / 700 Balance 323 / 323 800 / 800 1784 / 1784 Intake: IV Fluids 403 / 403 1500 / 1500 1784 / 1784 KCl 20mEq IN D5%-0.45 1000 / 1000 624 / 624 NACL 20 meq In 1,000 ml @ 75 mls/hr IVC .[id number] [facility] Rx#:[id number] Clinimix E 5%-15% 303 / 303 1160 / 1160 SOLUTION 2,000 ML @ 75 mls/hr IVC .Q24H [facility] with M.v.i. Adult 10 ml Rx#: [id number] Intralipid 20% 250 ML @ 250 / 250 21 mls/hr IVPB DAILY@1700 [facility] Rx#:[id number] Potassium Chloride 10 mEq 100 / 100 /100mL 10 meq In 100 ml @ 100 mls/hr IVPB Q1H [facility] Rx#:[id number] Vancocin 1,000 MG In 250 / 250 Dextrose 5% 250 ML @ 167 mls/hr IVPB Q12H [facility] Rx#: [id number] Oral 120 / 120 Output: Urine 200 / 200 500 / 500 Urine/Stool Mix 200 / 200 Gastric Drainage 0 / 0 Other: Meal NPO NPO at this time Percent of Meal Consumed 0% Stool Size Small Stool Consistency loose Stool Color Brown # Bowel Movements 1 Weight 97.1 kg Blood Glucose* 150 117 Patient Weight 04/21/17 23:59 Weight 97.1 kg Consult Discharge Plan - Plan [facility]errals: [facility]Primary Care Provider[facility] - <Maria Esther Bentley - Last Filed: 04/21/17 13:58> Date of Encounter: 04/21/17 - Assessment and Plan (1) Nausea and vomiting Current Visit: Yes Status: Resolved Qualifiers: Vomiting type: bilious vomiting Qualified Code(s): R11.14 - Bilious vomiting (2) S/P right colectomy Current Visit: Yes Status: Acute (3) Seroma Current Visit: Yes Status: Acute de=escalate to ampicillin continue Abx (4) SBO (small bowel obstruction) Current Visit: Yes Status: Acute improved, passing flatus and had two bms ngt to gravity and start clears, if tolerates will remove ngt later today (5) Hypokalemia Current Visit: No Status: Acute Subjective Patient reports: no new complaints, flatus, bowel movement, afebrile Narrative: feels a little distended today no nausea Objective Vital Signs - Last 8 Hours Temp Pulse Resp BP Pulse Ox 04/21/17 10:32 98.1 F 82 16 121/74 95 04/21/17 06:39 98.4 F 74 16 142/82 97 Intake and Output 04/20/17 04/21/17 04/21/17 23:59 07:59 15:59 Intake Total 523 / 523 1500 / 1500 2397 / 2397 Output Total 200 / 200 700 / 700 200 / 200 Balance 323 / 323 800 / 800 2197 / 2197 Intake: IV Fluids 403 / 403 1500 / 1500 2157 / 2157 KCl 20mEq IN D5%-0.45 1000 / 1000 747 / 747 NACL 20 meq In 1,000 ml @ 75 mls/hr IVC .[id number] [facility] Rx#:[id number] Clinimix E 5%-15% 303 / 303 1160 / 1160 SOLUTION 2,000 ML @ 75 mls/hr IVC .Q24H [facility] with M.v.i. Adult 10 ml Rx#: [id number] Intralipid 20% 250 ML @ 250 / 250 21 mls/hr IVPB DAILY@1700 [facility] Rx#:[id number] Potassium Chloride 10 mEq 100 / 100 /100mL 10 meq In 100 ml @ 100 mls/hr IVPB Q1H [facility] Rx#:[id number] Vancocin 1,000 MG In 250 / 250 250 / 250 Dextrose 5% 250 ML @ 167 mls/hr IVPB Q12H [facility] Rx#: [id number] Oral 120 / 120 240 / 240 Output: Urine 200 / 200 500 / 500 200 / 200 Urine/Stool Mix 200 / 200 Gastric Drainage 0 / 0 0 / 0 Other: Meal NPO Clear Percent of Meal Consumed 0% Stool Size Small Small Stool Consistency loose liquid Stool Color Brown Brown # Bowel Movements 1 1 Weight 97.1 kg Blood Glucose* 150 117 131 Patient Weight 04/21/17 23:59 Weight 97.1 kg - General physical appearance well developed, well nourished, no distress, no pain, obese - Eyes PERRL, normal ocular movement - ENT normal mucosa, normocephalic - Neck Neck exam: trachea midline - Respiratory normal expansion, clear to auscultation - Cardiovascular Cardiovascular exam: Present: RRR - Abdomen Abdomen: Present: bowel sounds present, soft, non tender, distended - Incision Incision: Present: clean and dry, serous, open - Integumentary no rash, no growths - Neurologic CN 2-12 grossly intact - Musculoskeletal normal posture - Psychiatric oriented to time, oriented to person, oriented to place, speech is normal, memory intact - Labs 04/21/17 04:40 04/21/17 04:40 Vital Signs Temp Pulse Resp BP Pulse Ox 04/21/17 10:32 98.1 F 82 16 121/74 95 04/21/17 06:39 98.4 F 74 16 142/82 97 04/20/17 23:25 98.7 F 84 15 129/77 95 04/20/17 20:09 98.2 F 89 18 132/94 95 Intake and Output 04/20/17 04/21/17 04/21/17 23:59 07:59 15:59 Intake Total 523 / 523 1500 / 1500 2397 / 2397 Output Total 200 / 200 700 / 700 200 / 200 Balance 323 / 323 800 / 800 2197 / 2197 Intake: IV Fluids 403 / 403 1500 / 1500 2157 / 2157 KCl 20mEq IN D5%-0.45 1000 / 1000 747 / 747 NACL 20 meq In 1,000 ml @ 75 mls/hr IVC .[id number] [facility] Rx#:[id number] Clinimix E 5%-15% 303 / 303 1160 / 1160 SOLUTION 2,000 ML @ 75 mls/hr IVC .Q24H [facility] with M.v.i. Adult 10 ml Rx#: [id number] Intralipid 20% 250 ML @ 250 / 250 21 mls/hr IVPB DAILY@1700 [facility] Rx#:[id number] Potassium Chloride 10 mEq 100 / 100 /100mL 10 meq In 100 ml @ 100 mls/hr IVPB Q1H [facility] Rx#:[id number] Vancocin 1,000 MG In 250 / 250 250 / 250 Dextrose 5% 250 ML @ 167 mls/hr IVPB Q12H [facility] Rx#: [id number] Oral 120 / 120 240 / 240 Output: Urine 200 / 200 500 / 500 200 / 200 Urine/Stool Mix 200 / 200 Gastric Drainage 0 / 0 0 / 0 Other: Meal NPO Clear Percent of Meal Consumed 0% Stool Size Small Small Stool Consistency loose liquid Stool Color Brown Brown # Bowel Movements 1 1 Weight 97.1 kg Blood Glucose* 150 117 131 Patient Weight 04/21/17 23:59 Weight 97.1 kg Short CBC 04/21/17 Range/Units 04:40 WBC 8.2 (4.3-11.1) K/mcL Hgb 12.4 (11.5-15.4) g/dL Hct 40.5 (35.3-44.9) % Plt Count 399 (140-400) K/mcL Neutrophils # 5.7 (1.6-8.9) K/mcL BMP 04/21/17 Range/Units 04:40 Sodium 137 (136-145) mEq/L Potassium 3.6 (3.5-4.5) mEq/L Chloride 106 (98-109) mEq/L Carbon Dioxide 27 (19-29) mEq/L BUN 11 (7-20) mg/dL Creatinine 0.58 (0.57-1.11) mg/dL Glucose 139 H (70-99) mg/dL Calcium 8.6 (8.6-10.8) mg/dL - Attending Attestation I examined this patient and my medical decision-making was reviewed with the SPECIAL FORCES SENIOR SERGEANT/PA/Advanced Practice Nurse/Resident Physician. I agree with the documented findings, disposition and treatment plan as described except to the extent set forth below.
[2017-04-21] MEDS: Vancomycin 1,000 MG in D5% in Water 250 ML IVPB SCH (10:42)
[2017-04-21] MEDS: Ampicillin 2 GM in 0.9 % Sodium Chloride Mini Bag 100 ML IVPB SCH ×3 (14:41→21:02)
[2017-04-21] MEDS ORDERED: Clinimix E 5%-15% SOLUTION 2,000 ML with MVI, adult with vitamin K 10 ML IVC SCH (17:00)
[2017-04-21] MEDS: Ondansetron 4 MG/2 ML VIAL IVP PRN (18:15)
[2017-04-21] MEDS: *HR* LORazepam 2 MG/ML VIAL IVP PRN (21:02)
[2017-04-22] MEDS: Metoclopramide 10 MG/2 ML VIAL IVP SCH ×4 (00:34→17:18)
[2017-04-22] MEDS: Ampicillin 2 GM in 0.9 % Sodium Chloride Mini Bag 100 ML IVPB SCH ×6 (00:34→21:15)
[2017-04-22] MEDS: *HR* Heparin 5,000 UNIT/ML VIAL SQ SCH ×2 (05:14→17:35)
[2017-04-22] MEDS: Pantoprazole 40 MG VIAL IVP SCH (08:00)
[2017-04-22] MEDS: D5% in 0.45% NACL w KCl 20 MEQ/1,000 ML MLS IVC SCH (08:01)
[2017-04-22 08:42] LABS: BUN/Creatinine Ratio 14 (6-26); Blood Urea Nitrogen 8 mg/dL (7-20); Calcium 8.8 mg/dL (8.6-10.8); Carbon Dioxide 24 mEq/L (19-29); Chloride 106 mEq/L (98-109); Glucose 119 mg/dL (70-99); Magnesium 1.9 mg/dL (1.6-2.6); Osmolality,Calculated 285 (280-300); Phosphorous 3.6 mg/dL (2.3-4.7); Sodium 138 mEq/L (136-145); Triglycerides 146 mg/dL (< 150); eGFR For African Americans > 60 (> 60); eGFR For Non-African Americans > 60 (> 60)
[2017-04-22 08:44] LABS: Potassium 4.2 mEq/L (3.5-4.5)
--- NOTE | 2017-04-22 09:47 | General Surgery Progress Note ---
<Billy Cevallos - Last Filed: 04/22/17 09:44> Date of Encounter: 04/22/17 Time of Encounter: 09:45 - Assessment and Plan (1) Ileus Current Visit: Yes Status: Acute Management for Ileus: KUB on 04/20/17 demonstrated resolution of air filled distended loops of bowel D/c the NGT today TPN with PICC line today Keeping diet to clear liquids for now. Three BMs noted this morning Discussed and encouraged OOB as tolerating with staff. Continue wound care. Soap and Water ok on incision. No submersion or direct spray. Afebrile. Normal WBC. No drainage. Discharge planning - Likely once diet advanced and tolerated with continued clinical resolution of ileus with bowel function (2) Seroma Current Visit: Yes Status: Acute Culture came back with enterococcus faecalis and started on Vanco. (3) S/P right colectomy Current Visit: Yes Status: Acute Peformed on 04/10/[address] Bentley. See plan above. (4) Nausea and vomiting Current Visit: Yes Status: Resolved Resolved. Tolerating clear diet. Will continue PRN antiemetics. Qualifiers: Vomiting type: bilious vomiting Qualified Code(s): R11.14 - Bilious vomiting (5) Hypokalemia Current Visit: No Status: Acute K 4.2 today. Subjective Patient reports: feels better, pain is less, tolerating liquids well, flatus, bowel movement (loose), afebrile Narrative: Patient is walking in the hallways this morning. no NGT output overnight. Objective Vital Signs - Last 8 Hours Temp Pulse Resp BP Pulse Ox 04/22/17 07:30 97.9 F 79 16 122/71 93 Intake and Output 04/21/17 04/22/17 04/22/17 23:59 07:59 15:59 Intake Total 777 / 777 2341 / 2341 120 / 120 Output Total 1000 / 1000 1000 / 1000 Balance -223 / -223 1341 / 1341 120 / 120 Intake: IV Fluids 777 / 777 2341 / 2341 KCl 20mEq IN D5%-0.45 1000 / 1000 NACL 20 meq In 1,000 ml @ 75 mls/hr IVC .[id number] [facility] Rx#:[id number] Clinimix E 5%-15% 577 / 577 891 / 891 SOLUTION 2,000 ML @ 75 mls/hr IVC .Q24H [facility] with M.v.i. Adult 10 ml Rx#: [id number] Ampicillin 2 GM In 0.9 % 200 / 200 200 / 200 Sodium Chloride (Mini-Bag +) 100 ML @ 200 mls/hr IVPB Q4H [facility] Rx#: [id number] Intralipid 20% 250 ML @ 250 / 250 21 mls/hr IVPB DAILY@1700 [facility] Rx#:[id number] Oral 0 / 0 120 / 120 Output: Urine 200 / 200 200 / 200 Stool 800 / 800 400 / 400 Urine/Stool Mix 400 / 400 Other: Meal Clear Breakfast Percent of Meal Consumed 0% Stool Size Moderate Moderate Stool Consistency loose liquid Stool Color Brown Brown # Bowel Movement Diapers 1 Weight 97.976 kg Blood Glucose* 143 124 Patient Weight 04/22/17 23:59 Weight 97.976 kg - General physical appearance no distress, obese - Eyes normal ocular movement - ENT normal mucosa - Neck Neck exam: trachea midline - Respiratory normal respiratory effort, clear to auscultation - Cardiovascular Cardiovascular exam: Present: RRR, no murmurs/rubs/gallops - Abdomen Abdomen: Present: bowel sounds present, soft, non tender, wound (midline incision is c/d/i. dressing off. shirin present without dehiscecne, erythema , or drainage) - Psychiatric oriented to time, oriented to person, oriented to place, speech is normal, memory intact - Labs 04/21/17 04:40 04/22/17 05:45 BMP 04/22/17 Range/Units 05:45 Sodium 138 (136-145) mEq/L Potassium 4.2 (3.5-4.5) mEq/L Chloride 106 (98-109) mEq/L Carbon Dioxide 24 (19-29) mEq/L BUN 8 (7-20) mg/dL Creatinine 0.59 (0.57-1.11) mg/dL Glucose 119 H (70-99) mg/dL Calcium 8.8 (8.6-10.8) mg/dL Vital Signs Temp Pulse Resp BP Pulse Ox 04/22/17 07:30 97.9 F 79 16 122/71 93 04/21/17 23:18 98.4 F 81 17 114/73 95 04/21/17 19:59 99.3 F 81 16 112/71 95 04/21/17 14:54 99.2 F 82 16 111/75 95 04/21/17 10:32 98.1 F 82 16 121/74 95 Intake and Output 04/21/17 04/22/17 04/22/17 23:59 07:59 15:59 Intake Total 777 / 777 2341 / 2341 120 / 120 Output Total 1000 / 1000 1000 / 1000 Balance -223 / -223 1341 / 1341 120 / 120 Intake: IV Fluids 777 / 777 2341 / 2341 KCl 20mEq IN D5%-0.45 1000 / 1000 NACL 20 meq In 1,000 ml @ 75 mls/hr IVC .[id number] [facility] Rx#:[id number] Clinimix E 5%-15% 577 / 577 891 / 891 SOLUTION 2,000 ML @ 75 mls/hr IVC .Q24H [facility] with M.v.i. Adult 10 ml Rx#: [id number] Ampicillin 2 GM In 0.9 % 200 / 200 200 / 200 Sodium Chloride (Mini-Bag +) 100 ML @ 200 mls/hr IVPB Q4H [facility] Rx#: [id number] Intralipid 20% 250 ML @ 250 / 250 21 mls/hr IVPB DAILY@1700 [facility] Rx#:[id number] Oral 0 / 0 120 / 120 Output: Urine 200 / 200 200 / 200 Stool 800 / 800 400 / 400 Urine/Stool Mix 400 / 400 Other: Meal Clear Breakfast Percent of Meal Consumed 0% Stool Size Moderate Moderate Stool Consistency loose liquid Stool Color Brown Brown # Bowel Movement Diapers 1 Weight 97.976 kg Blood Glucose* 143 124 Patient Weight 04/22/17 23:59 Weight 97.976 kg Consult Discharge Plan - Plan [facility]errals: [facility]Primary Care Provider[facility] - <Maria Esther Bentley - Last Filed: 04/22/17 17:35> Date of Encounter: 04/22/17 - Assessment and Plan (1) Nausea and vomiting Current Visit: Yes Status: Resolved Qualifiers: Vomiting type: bilious vomiting Qualified Code(s): R11.14 - Bilious vomiting (2) S/P right colectomy Current Visit: Yes Status: Acute (3) Seroma Current Visit: Yes Status: Acute (4) Hypokalemia Current Visit: No Status: Acute Subjective Patient reports: no new complaints, feels better, tolerating liquids well, flatus, bowel movement, afebrile Objective Vital Signs - Last 8 Hours Temp Pulse Resp BP Pulse Ox 04/22/17 16:01 98.7 F 89 16 113/67 96 04/22/17 11:02 98.1 F 76 16 122/78 95 Intake and Output 04/22/17 04/22/17 04/22/17 07:59 15:59 23:59 Intake Total 2341 / 2341 680 / 680 Output Total 1000 / 1000 1450 / 1450 200 / 200 Balance 1341 / 1341 -770 / -770 -200 / -200 Intake: IV Fluids 2341 / 2341 200 / 200 KCl 20mEq IN D5%-0.45 1000 / 1000 NACL 20 meq In 1,000 ml @ 75 mls/hr IVC .[id number] [facility] Rx#:[id number] Clinimix E 5%-15% 891 / 891 SOLUTION 2,000 ML @ 75 mls/hr IVC .Q24H [facility] with M.v.i. Adult 10 ml Rx#: [id number] Ampicillin 2 GM In 0.9 % 200 / 200 200 / 200 Sodium Chloride (Mini-Bag +) 100 ML @ 200 mls/hr IVPB Q4H [facility] Rx#: [id number] Intralipid 20% 250 ML @ 250 / 250 21 mls/hr IVPB DAILY@1700 [facility] Rx#:[id number] Oral 480 / 480 Output: Urine 200 / 200 500 / 500 200 / 200 Stool 400 / 400 Urine/Stool Mix 400 / 400 700 / 700 Gastric Drainage 250 / 250 Other: Meal Lunch Stool Size Moderate Small Small Stool Consistency liquid liquid loose Stool Color Brown Green Brown # Voids 1 # Bowel Movements 1 Weight 97.976 kg Blood Glucose* 124 108 Patient Weight 04/22/17 23:59 Weight 97.976 kg - General physical appearance well nourished, no distress - Eyes normal ocular movement - ENT normal mucosa, normocephalic - Neck Neck exam: trachea midline - Respiratory normal expansion, normal respiratory effort - Cardiovascular Cardiovascular exam: Present: RRR - Abdomen Abdomen: Present: soft, non tender - Incision Incision: Present: clean and dry, serous (packed), open - Integumentary no rash, no growths - Neurologic CN 2-12 grossly intact - Musculoskeletal normal posture - Psychiatric oriented to time, oriented to person, oriented to place, speech is normal, memory intact - Labs 04/21/17 04:40 04/22/17 05:45 Diabetes panel 04/22/17 Range/Units 05:45 Sodium 138 (136-145) mEq/L Potassium 4.2 (3.5-4.5) mEq/L Chloride 106 (98-109) mEq/L Carbon Dioxide 24 (19-29) mEq/L BUN 8 (7-20) mg/dL Creatinine 0.59 (0.57-1.11) mg/dL Glucose 119 H (70-99) mg/dL Calcium 8.8 (8.6-10.8) mg/dL Triglycerides 146 (< 150) mg/dL Calcium panel 04/22/17 Range/Units 05:45 Calcium 8.8 (8.6-10.8) mg/dL Phosphorus 3.6 (2.3-4.7) mg/dL Pituitary panel 04/22/17 Range/Units 05:45 Sodium 138 (136-145) mEq/L Potassium 4.2 (3.5-4.5) mEq/L Chloride 106 (98-109) mEq/L Carbon Dioxide 24 (19-29) mEq/L BUN 8 (7-20) mg/dL Creatinine 0.59 (0.57-1.11) mg/dL Glucose 119 H (70-99) mg/dL Calcium 8.8 (8.6-10.8) mg/dL Adrenal panel 04/22/17 Range/Units 05:45 Sodium 138 (136-145) mEq/L Potassium 4.2 (3.5-4.5) mEq/L Chloride 106 (98-109) mEq/L Carbon Dioxide 24 (19-29) mEq/L BUN 8 (7-20) mg/dL Creatinine 0.59 (0.57-1.11) mg/dL Glucose 119 H (70-99) mg/dL Calcium 8.8 (8.6-10.8) mg/dL - Attending Attestation I examined this patient and my medical decision-making was reviewed with the EXPOSURE MACHINE OPERATOR/PA/Advanced Practice Nurse/Resident Physician. I agree with the documented findings, disposition and treatment plan as described except to the extent set forth below.
[2017-04-22] MEDS ORDERED: Clinimix E 5%-15% SOLUTION 2,000 ML with MVI, adult with vitamin K 10 ML IVC SCH (17:00)
[2017-04-22] MEDS ORDERED: *HR* HYDROcodone/Acet 5/325 mg TABLET PO PRN (17:36)
[2017-04-22] MEDS: *HR* LORazepam 2 MG/ML VIAL IVP PRN (21:20)
[2017-04-23] MEDS: Ampicillin 2 GM in 0.9 % Sodium Chloride Mini Bag 100 ML IVPB SCH ×6 (00:18→20:29)
[2017-04-23] MEDS: Metoclopramide 10 MG/2 ML VIAL IVP SCH ×5 (00:19→23:03)
[2017-04-23] MEDS: *HR* Heparin 5,000 UNIT/ML VIAL SQ SCH ×2 (05:12→17:42)
[2017-04-23 05:54] LABS: BUN/Creatinine Ratio 13 (6-26); Blood Urea Nitrogen 8 mg/dL (7-20); Calcium 9.2 mg/dL (8.6-10.8); Carbon Dioxide 22 mEq/L (19-29); Chloride 105 mEq/L (98-109); Glucose 115 mg/dL (70-99); Osmolality,Calculated 283 (280-300); Potassium 4.3 mEq/L (3.5-4.5); Sodium 137 mEq/L (136-145); eGFR For African Americans > 60 (> 60); eGFR For Non-African Americans > 60 (> 60)
--- NOTE | 2017-04-23 15:09 | General Surgery Progress Note ---
<Sherlyn Heard - Last Filed: 04/23/17 16:35> Date of Encounter: 04/23/17 Time of Encounter: 14:50 - Assessment and Plan (1) S/P right colectomy Status: Acute Management for ileus: -s/p right colectomy with primary anastomosis on 04/10/2017 -KUB 04/20/2017 demonstarated resolution of air filed distended loops of bowel NG was d/c's 04/22/2017 and diet advanced Tolerating full liquids for lunch, will advance to soft diet for dinner Supportive Care Continue anti-emetics PRN for nausea or vomiting Continue Reglan Advance diet as above Wound care: -clean, dry, intact with the exception of packing site. Reassess in the a.m. Consideration given to staple removal and discontinuation of packing pending assessment. Cautiously optimistic for possible d/c tomorrow pending toleration of diet and clinical course (2) Nausea and vomiting Status: Acute Resolved Qualifiers: Vomiting type: bilious vomiting Qualified Code(s): R11.14 - Bilious vomiting (3) Seroma Status: Acute Greatly improved. See plan above. (4) Hypokalemia Status: Acute BMP unremarkable today. Continue diet as detailed above. Subjective Patient reports: no new complaints, feels better, pain is less, tolerating liquids well (full liquids), voiding w/o difficulty, flatus, bowel movement, afebrile Narrative: Denies nausea, vomiting, or diarrhea. Reports she is feeling " so much better." Denies drainage from incision site. Objective Vital Signs - Last 8 Hours Temp Pulse Resp BP Pulse Ox 04/23/17 14:32 97.7 F 89 16 124/74 93 04/23/17 10:38 98.0 F 83 16 105/70 95 Intake and Output 04/22/17 04/23/17 04/23/17 23:59 07:59 15:59 Intake Total 200 / 200 200 / 200 460 / 460 Output Total 700 / 700 1100 / 1100 1300 / 1300 Balance -500 / -500 -900 / -900 -840 / -840 Intake: IV Fluids 200 / 200 200 / 200 100 / 100 Ampicillin 2 GM In 0.9 % 200 / 200 200 / 200 100 / 100 Sodium Chloride (Mini-Bag +) 100 ML @ 200 mls/hr IVPB Q4H [facility] Rx#: [id number] Oral 0 / 0 0 / 0 360 / 360 Output: Urine 700 / 700 1100 / 1100 0 / 0 Urine/Stool Mix 1300 / 1300 Other: Meal Lunch Percent of Meal Consumed 25% Stool Size Small Small Stool Consistency loose liquid Stool Color Brown Brown # Voids 1 # Bowel Movements 0 1 Weight 98.2 kg Blood Glucose* 118 102 Patient Weight 04/23/17 23:59 Weight 98.2 kg - General physical appearance well developed, well nourished, no distress - Eyes normal ocular movement - ENT normal mucosa - Neck Neck exam: trachea midline - Respiratory normal expansion, normal respiratory effort, clear to auscultation - Cardiovascular Cardiovascular exam: Present: RRR - Abdomen Abdomen: Present: bowel sounds present, soft, non tender Hernia: none - Incision Incision: Present: clean and dry (packing noted.) - Integumentary no rash - Neurologic CN 2-12 grossly intact - Musculoskeletal normal gait, normal posture - Psychiatric oriented to time, oriented to person, oriented to place - Labs 04/21/17 04:40 04/23/17 05:20 Diabetes panel 04/23/17 Range/Units 05:20 Sodium 137 (136-145) mEq/L Potassium 4.3 (3.5-4.5) mEq/L Chloride 105 (98-109) mEq/L Carbon Dioxide 22 (19-29) mEq/L BUN 8 (7-20) mg/dL Creatinine 0.63 (0.57-1.11) mg/dL Glucose 115 H (70-99) mg/dL Calcium 9.2 (8.6-10.8) mg/dL Calcium panel 04/23/17 Range/Units 05:20 Calcium 9.2 (8.6-10.8) mg/dL Pituitary panel 04/23/17 Range/Units 05:20 Sodium 137 (136-145) mEq/L Potassium 4.3 (3.5-4.5) mEq/L Chloride 105 (98-109) mEq/L Carbon Dioxide 22 (19-29) mEq/L BUN 8 (7-20) mg/dL Creatinine 0.63 (0.57-1.11) mg/dL Glucose 115 H (70-99) mg/dL Calcium 9.2 (8.6-10.8) mg/dL Adrenal panel 04/23/17 Range/Units 05:20 Sodium 137 (136-145) mEq/L Potassium 4.3 (3.5-4.5) mEq/L Chloride 105 (98-109) mEq/L Carbon Dioxide 22 (19-29) mEq/L BUN 8 (7-20) mg/dL Creatinine 0.63 (0.57-1.11) mg/dL Glucose 115 H (70-99) mg/dL Calcium 9.2 (8.6-10.8) mg/dL Consult Discharge Plan - Plan Instructions: Colectomy (DC), Ileus (DC) Additional Instructions: Do not lift over 15lbs for 4 weeks Okay to shower in 24 hours. No tub baths or pools for 1 week. Okay to ride in a car wearing seatbelt and concepts. No driving until off narcotics for 24 hours and able to react safely. Wound care daily. Soap and water. Do not submerge. Will remove additional shirin at followup. Continue wound packing as directed. Continued Ampicillin 500mg every 6 hours for 5 days. Sent to [facility] today. Home medication list - You have been given a list of her current medications. If changes in your medications, update her list. - Provide a list of current medications to primary care physician. - Carry a copy of your current medications with you in case of emergency. [facility]Primary Care Provider[facility] - Prescriptions: Ampicillin Trihydrate 500 mg PO Q6HR #20 capsule <Maria Esther Bentley - Last Filed: 04/25/17 13:16> Date of Encounter: 04/23/17 - Assessment and Plan (1) Nausea and vomiting Status: Acute Qualifiers: Vomiting type: bilious vomiting Qualified Code(s): R11.14 - Bilious vomiting (2) S/P right colectomy Status: Acute advance diet to soft, patient is learning how to pack wound herself having flatus and bm (3) Seroma Status: Acute (4) Hypokalemia Status: Acute Subjective Patient reports: no new complaints, feels better, tolerating liquids well, voiding w/o difficulty, flatus, bowel movement, afebrile Objective - General physical appearance well nourished, no distress, no pain - Eyes normal ocular movement - ENT normal mucosa, normocephalic - Respiratory normal expansion, clear to auscultation - Cardiovascular Cardiovascular exam: Present: RRR - Abdomen Abdomen: Present: bowel sounds present, soft, non tender - Incision Incision: Present: clean and dry - Integumentary no rash - Neurologic CN 2-12 grossly intact - Musculoskeletal normal gait, normal posture - Psychiatric oriented to time, oriented to person, oriented to place, speech is normal - Labs 04/21/17 04:40 04/23/17 05:20 - Attending Attestation I examined this patient and my medical decision-making was reviewed with the [employer]/PA/Advanced Practice Nurse/Resident Physician. I agree with the documented findings, disposition and treatment plan as described except to the extent set forth below.
[2017-04-23] MEDS: *HR* LORazepam 2 MG/ML VIAL IVP PRN (23:03)
[2017-04-24] MEDS: Ampicillin 2 GM in 0.9 % Sodium Chloride Mini Bag 100 ML IVPB SCH ×3 (05:30→09:02)
[2017-04-24] MEDS: Metoclopramide 10 MG/2 ML VIAL IVP SCH (05:39)
[2017-04-24 06:55] VITALS: BP 108/63
--- NOTE | 2017-04-24 11:06 | Discharge Summary ---
Date of Encounter: 04/24/17 Time of Encounter: 11:04 - Discharge Diagnosis (1) S/P right colectomy Priority: Primary Status: Acute Comments: Primary anastamosis for right colectomy on 04/10/17. Midline incision healing well. Alternating shirin removed with packing still present Education for wound care and packing given. Patient demonstrated competence Tolerated diet advancement after NGT d/c Encouraged continued ambulation and slow return to regular diet Patient understands and agrees to plan (2) Ileus Priority: Secondary Status: Acute Comments: S/P right colectomy on 04/10/17. KUb on 04/20/17 demonstrated resolution of dilation of bowel. NGT d/c 04/22/17 Diet advanced and tolerated Ambulating well No n/v (3) Seroma Priority: Secondary Status: Acute Comments: Patient grew out Enterococcus Faecalis and was started on IV Vancomycin. Transitoned to IV Ampicillin and PO Amp 500 q6hrs on discharge for 5 days. (4) Nausea and vomiting Priority: Secondary Status: Acute Comments: Resolved. Qualifiers: Vomiting type: bilious vomiting Qualified Code(s): R11.14 - Bilious vomiting (5) Hypokalemia Priority: Secondary Status: Acute Comments: Resolved. - Discharge Medications Home Medications: Ampicillin Trihydrate 500 mg PO Q6HR #20 capsule 04/24/17 [Rx] Allergies/Adverse Reactions: Allergies No Known Allergies Allergy (Verified 04/17/17 13:41) General Surgery Exam Initial Vital Signs Temp Pulse Resp BP Pulse Ox 97.8 F 112 16 119/86 94 04/17/17 10:15 04/17/17 10:15 04/17/17 10:15 04/17/17 10:15 04/17/17 10:15 - General physical appearance no distress, obese - Eyes normal ocular movement - ENT normal mucosa - Neck trachea midline - Respiratory normal expansion, normal respiratory effort, clear to auscultation - Cardiovascular Cardiovascular exam: Present: RRR, no murmurs/rubs/gallops - Abdomen Abdomen general surgery: Present: bowel sounds present, soft, non tender, wound (midline incision open to air. c/d/i. shirin present with packing present in lower 1/3 of inicision) - Neurologic Present: CN 2-12 grossly intact - Psychiatric Psychiatric general surgery: Present: appropriate, oriented to person, oriented to place, oriented to time, speech is normal, memory intact Date of admission: 04/17/17 14:25 Primary care physician: PCP ANAHI Consults: 04/18/17 08:48 Consult to Nutrition [CONS] Routine Comment: Consulting Provider: NUTRITION Reason for Dietary Consult: TPN Start and Manage 04/19/17 19:04 Consult to Invasive Line Access Team [CONS] Routine Reason for Consult: Picc Line Insertion for TPN Line Type: PICC Discharging clinician: Maria Esther Bentley Anticipated date of discharge: 04/24/17 - Patient Status Disposition: Home, Self-Care Condition: Fair Functional capacity at discharge: independent ambulation Overall status at discharge: patient is progressing back to baseline - Discharge Instructions Instructions: Colectomy (DC), Ileus (DC) [facility]: [facility] [[facility] Care Provider[facility] - Additional Instructions: Do not lift over 15lbs for 4 weeks Okay to shower in 24 hours. No tub baths or pools for 1 week. Okay to ride in a car wearing seatbelt and concepts. No driving until off narcotics for 24 hours and able to react safely. Wound care daily. Soap and water. Do not submerge. Will remove additional shirin at followup. Continue wound packing as directed. Continued Ampicillin 500mg every 6 hours for 5 days. Sent to [facility] today. Home medication list - You have been given a list of her current medications. If changes in your medications, update her list. - Provide a list of current medications to primary care physician. - Carry a copy of your current medications with you in case of emergency. - Diet and Activity Diet: advance to your usual diet (slowly) - Hospital Course Hospital course: Ms. Kay is a 51 year old female wh presented to [facility] ED with chief complaint of n/v and increased bloating. 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 She subsequently underwent an open right colectomy on 04/10/17 and was discharged on 04/16/17. On admission, there was clear, yellow fluid from the bottom of her abdominal incision. Wound cultures were taken and grew out Enterococcus Faecalis. KUB demonstrated dialated loops of small bowel without obvious obstruction and was made NPO with NGT for post- operative ileus. Susceptibilities came back for the wound and she was started on IV Vancomycin. Patient progressed well with ambulation, discontinuing her NGT and tolerating the advancement of her diet. Repeat KUB showed resolution of ileus. She was discharged home in stable condition on PO ampicillin for 5 days with followup with Chichi Lovett on May 02 at 10:00am. - Time Spent with Patient Total time spent providing and/or coordinating discharge services: Labs on day of discharge: Vital Signs Temp Pulse Resp BP Pulse Ox 04/24/17 06:54 98.1 F 78 16 108/63 96 04/24/17 04:09 98.4 F 97 15 99/66 93 04/23/17 22:53 98.7 F 82 17 111/73 94 04/23/17 18:51 98.2 F 86 15 107/70 95 04/23/17 14:32 97.7 F 89 16 124/74 93 Intake and Output 04/23/17 04/24/17 04/24/17 23:59 07:59 15:59 Intake Total 320 / 320 100 / 100 240 / 240 Output Total 1400 / 1400 1100 / 1100 300 / 300 Balance -1080 / -1080 -1000 / -1000 -60 / -60 Intake: IV Fluids 200 / 200 100 / 100 Ampicillin 2 GM In 0.9 % 200 / 200 100 / 100 Sodium Chloride (Mini-Bag +) 100 ML @ 200 mls/hr IVPB Q4H [facility] Rx#: [id number] Oral 120 / 120 0 / 0 240 / 240 Output: Urine 800 / 800 1100 / 1100 300 / 300 Urine/Stool Mix 600 / 600 Other: Meal Dinner Breakfast Percent of Meal Consumed 80% 50% Stool Consistency liquid # Bowel Movements 1 Weight 98.9 kg Patient Weight 04/24/17 23:59 Weight 98.9 kg - Impressions ITS Impressions KUB X-Ray 04/17/17 16:23 IMPRESSION: Enteric tube in the stomach as above. Distention of the small bowel which may represent partial small-bowel obstruction. D/ / 04/17/2017 16:42:40 Wero Martell MD / [email or web address] Interpreting Provider: Wero Martell MD X-Ray 04/18/17 15:39 IMPRESSION: Enteric tube in the stomach as above. Partial small bowel obstruction versus ileus. Recommend follow-up radiographs. D/ / 04/18/2017 16:37:03 Daniel Duke MD / gena Interpreting Provider: Daniel Duke MD X-Ray 04/20/17 12:47 IMPRESSION: 1. Tip and side port of the enteric tube in the gastric body. 2. Resolution of the previously identified air-filled distended loops of bowel. D/ / Rodolfo Muñoz MD / Rodolfo Muñoz MD Interpreting Provider: Rodolfo Muñoz MD
== END 2017-04-24 13:36 | disposition home or self-care (01) | DRG 390 ==
LOC: 3ANU 10:13 → EMEROO 10:13 → 3ANU 13:40
PROVIDERS: ADMIT Surgery; ATTEND Surgery